=== PATIENT | female | born 1945 | race Caucasian/White ===

== ENCOUNTER 2016-12-22 15:08 | Emergency (ER) | payer MEDICARE ==
[2016-12-22 17:42] LABS: Hematocrit 44 % (35-47); Hemoglobin 14.5 g/dl (12.0-16.0); Mean Corpuscular HGB Conc 33 g/dl (31-36); Mean Corpuscular Hemoglobin 31 pg (27-31); Mean Corpuscular Volume 93 fL (80-97); Mean Platelet Volume 9 um3 (7.4-10.4); Red Blood Count 4.68 10^6/ul (4.0-5.4); Red Cell Distribution Width 14 % (10.5-15)
[2016-12-22 17:49] LABS: Comments Flag Yes
[2016-12-22 17:50] LABS: Add Diff/Slide Review? Slide Review Added
[2016-12-22 17:57] LABS: Albumin 3.9 g/dL (3.2-5.2); BUN/Creatinine Ratio 13.7 (8-20); EGFR African American 101.1 (>60); EGFR Non-African American 78.6 (>60); Globulin 3.1 g/dL (2-4); Potassium 4.2 mmol/L (3.5-5.0); Total Bilirubin 0.7 mg/dL (0.2-1.0)
[2016-12-22 17:59] LABS: Troponin I 0.01 ng/mL (<0.04)
[2016-12-22 18:19] LABS: White Blood Count 2.5 10^3/ul (3.5-10.8)
--- NOTE | 2016-12-22 18:52 | RAD ---
INDICATION: Short of breath COMPARISON: July 14, 2014 TECHNIQUE: PA and lateral dual-energy views were obtained. FINDINGS: Bones/Soft Tissues: There are no acute bony findings. There is a left-sided cardiac pacemaker. Cardiomediastinal: The cardiomediastinal silhouette is normal. Lungs: There are no infiltrates. There is mild chronic interstitial change. Pleura: There are no pleural effusions. Other: There is a large hiatal hernia IMPRESSION: NO ACTIVE DISEASE.
[2016-12-22] MEDS ORDERED: Iohexol 350* (CONTRAST) 500 ML MDV IV ONE (19:38)
[2016-12-22] MEDS ORDERED: Acetaminophen TAB* 325 MG PO ONE (20:08)
--- NOTE | 2016-12-22 21:07 | RAD ---
INDICATION: Chest pain. Short of breath. Evaluate for pulmonary embolus. COMPARISON: Chest x-ray same date TECHNIQUE: Axial source images were obtained from the thoracic inlet to the hemidiaphragms following administration of [address] angiographic technique was utilized. Coronal and sagittal reconstructed images were acquired. CHEST FINDINGS: Neck/thyroid: The visualized neck to include the thyroid appear normal. Chest wall: There are no acute abnormalities of the bony thorax or chest wall. There is left-sided cardiac pacemaker. There is no supraclavicular, infraclavicular, or axillary lymphadenopathy. Lungs : There are no pulmonary parenchymal masses or infiltrates. The pulmonary interstitium appears normal. There are no endobronchial lesions. Cardiomediastinal structures: There is no CT evidence of acute pulmonary embolic disease. The heart is normal in size. There is no pericardial effusion. There is no evidence of aortic aneurysm or dissection. There is no mediastinal or hilar adenopathy. The esophagus appears normal. Pleura : There are no pleural-based masses or effusions. Other: There is a large hiatal hernia. IMPRESSION: NO CT EVIDENCE OF ACUTE PULMONARY EMBOLIC DISEASE.
[2016-12-22 21:18] VITALS: BP 155/80
[2016-12-22] MEDS ORDERED: Furosemide IV* 10 MG/ML VIAL (40 MG) ONE (22:25)
[2016-12-22] MEDS ORDERED: Oseltamivir CAP* 75 MG ONE (22:25)
[2016-12-22] MEDS: Oseltamivir CAP* 75 MG PO SCH ×2 (22:27→22:39)
--- NOTE | 2016-12-22 22:38 | ED ---
Elizabeth Galarza Michael, scribed for William Marcum MD on 12/22/16 at 1841 . Shortness of Breath - HPI Summary HPI Summary: 71 y/o female comes to the ED presenting with SOB that started 5 days ago. The SOB is aggravated with exertion. The pt was given one nebulizer treatment at her PCP today. She also c/o a wheezing, productive cough, nasal drainage, chills , decreased appetite, and frontal lobe TOVAR. The pt denies fever, dysuria, and diarrhea. The PMHx is significant for A-fib and CHF. The FHx is significant for CAD. - History of Current Complaint Chief Complaint: EDShortnessOfBreath Time Seen by Provider: 12/22/16 18:11 Hx Obtained From: Patient, Medical Records Onset/Duration: Gradual Onset, Lasting Days, Still Present Timing: Intermittent Episodes Lasting: Current Severity: Moderate Dyspnea At: Rest Aggrevating Factors: Movement Alleviating Factors: Bronchodilators Associated Signs & Symptoms: Cough (Productive), Wheezing, Chills - nasal drainage. TOVAR. - Allergy/Home Medications Allergies/Adverse Reactions: Allergies Allergy/AdvReac Type Severity Reaction Status Date / Time Morphine Allergy Intermediate Headache Verified 07/06/14 20:41 Aspirin [From Excedrin] Allergy Unknown Unknown Verified 07/06/14 20:41 Reaction Details Celecoxib [From Celebrex] Allergy Unknown Unknown Verified 07/06/14 20:41 Reaction Details Ibuprofen Allergy Unknown Unknown Verified 07/06/14 20:41 Reaction Details Naproxen [From Aleve] Allergy Unknown Unknown Verified 07/06/14 20:41 Reaction Details Oxycodone Allergy Unknown Unknown Verified 07/06/14 20:41 Reaction Details Rofecoxib [From Vioxx] Allergy Unknown Unknown Verified 07/06/14 20:41 Reaction Details Hydromorphone Allergy See Comment Verified 09/06/15 20:07 Pregabalin [From Lyrica] AdvReac Swelling Verified 07/06/14 20:41 PMH/Surg Hx/FS Hx/Imm Hx Endocrine/Hematology History: Reports: Hx Anticoagulant Therapy - xeralto, Hx Blood Transfusions - 1999 needed 4 pints 2x a year possible due to bleed., Hx Anemia Denies: Hx Diabetes, Other Endocrine/Hematological Disorders Cardiovascular History: Reports: Hx Pacemaker/ICD - afib, Other Cardiovascular Problems/Disorders - AFIB Denies: Hx Congestive Heart Failure, Hx Hypertension Respiratory History: Reports: Hx Seasonal Allergies, Other Respiratory Problems/ Disorders - Patient states she gets fluid in her lungs sometimes GI History: Reports: Hx Gall Bladder Disease - cholecystitis Comment Only: Other GI Disorders - Bowel polyp(?) removed History: Denies: Hx Renal Disease Comment Only: Other Problems/Disorders - on ct noted this admission pt has cyst on rt kidney Musculoskeletal History: Reports: Hx Arthritis - knees and back, Hx Back Problems, Hx Bursitis, Other Musculoskeletal History - Rt knee replacement, surgery to l elbow, tendons. Denies: Hx Gout, Hx Orthopedic Injury, Hx Osteoporosis Sensory History: Denies: Hx Cataracts - removed, Hx Contacts or Glasses, Hx Vision Problem, Hx Deafness Opthamlomology History: Denies: Hx Cataracts - removed, Hx Contacts or Glasses, Hx Vision Problem Neurological History: Reports: Hx Seizures Psychiatric History: Denies: Other Psychiatric Issues/Disorders - Surgical History Surgery Procedure, Year, and Place: [place] [facility] [place], 2005, [facility] in [place], [place]. Left elbow tendon/ligament repair, 2003, [place], [place]. . tumor/mass removed from bowel >25 yrs ago. cataracts bilat removed. Hx Anesthesia Reactions: No - Immunization History Date of Tetanus Vaccine: Unsure Date of Influenza Vaccine: 2011 Infectious Disease History: No Infectious Disease History: Denies: Traveled Outside the in Last 30 Days - Social History Alcohol Use: None Substance Use Type: Reports: None Smoking Status (MU): Former Smoker Type: Cigarettes Length of Time of Smoking/Using Tobacco: 20 years Have You Smoked in the Last Year: No Review of Systems Positive: Chills, Fatigue Eyes: Negative Negative: Photophobia Positive: Nasal Discharge, Other - sinus pressure Negative: Palpitations, Chest Pain Positive: Shortness Of Breath, Cough Skin: Negative Neurological: Negative All Other Systems Reviewed And Are Negative: Yes Physical Exam Triage Information Reviewed: Yes Vital Signs On Initial Exam: Initial Vitals Temp Pulse Resp BP Pulse Ox 98.0 F 81 26 151/71 97 12/22/16 15:14 12/22/16 15:14 12/22/16 15:14 12/22/16 15:14 12/22/16 15:14 Appearance: Positive: Obese Skin: Positive: Warm, Skin Color Reflects Adequate Perfusion Head/Face: Positive: Normal Head/Face Inspection Eyes: Positive: Normal, EOMI ENT: Positive: Other - frontal sinus tenderness Neck: Positive: Supple, Nontender. Negative: Nuchal Rigidity Respiratory/Lung Sounds: Positive: Other - decreased breath sound bilateral Cardiovascular: Positive: Normal, RRR. Negative: Murmur Abdomen Description: Positive: Nontender Musculoskeletal: Positive: Normal, Strength/ROM Intact Neurological: Positive: Normal, Sensory/Motor Intact, Alert, Oriented to Person Place, Time, CN Intact II-III - Joanie Coma Scale Coma Scale Total: 15 Diagnostics - Vital Signs Vital Signs Temp Pulse Resp BP Pulse Ox 12/22/16 18:10 97.7 F 79 22 138/66 93 12/22/16 16:21 98.1 F 66 18 138/66 100 12/22/16 15:14 98.0 F 81 26 151/71 97 - Laboratory Lab Results: Lab Results 12/22/16 12/22/16 12/22/16 Range/Units 17:32 17:32 17:32 WBC 2.5 L (3.5-10.8) 10^3/ul RBC 4.68 (4.0-5.4) 10^6/ul Hgb 14.5 (12.0-16.0) g/dl Hct 44 (35-47) % MCV 93 (80-97) fL MCH 31 (27-31) pg MCHC 33 (31-36) g/dl RDW 14 (10.5-15) % Plt Count 90 L (150-450) 10^3/ul MPV 9 (7.4-10.4) um3 Neut % (Auto) 58.5 (38-83) % Lymph % (Auto) 24.6 L (25-47) % [place] % (Auto) 13.4 H (1-9) % Eos % (Auto) 3.1 (0-6) % Baso % (Auto) 0.4 (0-2) % Absolute Neuts (auto) 1.5 (1.5-7.7) 10^3/ul Absolute Lymphs (auto) 0.6 L (1.0-4.8) 10^3/ul Absolute Monos (auto) 0.3 (0-0.8) 10^3/ul Absolute Eos (auto) 0.1 (0-0.6) 10^3/ul Absolute Basos (auto) 0 (0-0.2) 10^3/ul Absolute Nucleated RBC 0 10^3/ul Nucleated RBC % 0.1 Sodium 136 (133-145) mmol/L Potassium 4.2 (3.5-5.0) mmol/L Chloride 101 (101-111) mmol/L Carbon Dioxide 30 (22-32) mmol/L Anion Gap 5 (2-11) mmol/L BUN 10 (6-24) mg/dL Creatinine 0.73 (0.51-0.95) mg/dL Est GFR ( Amer) 101.1 (>60) Est GFR (Non-Af Amer) 78.6 (>60) BUN/Creatinine Ratio 13.7 (8-20) Glucose 80 (70-100) mg/dL Lactic Acid 0.9 (0.5-2.0) mmol/L Calcium 9.0 (8.6-10.3) mg/dL Total Bilirubin 0.70 (0.2-1.0) mg/dL AST 27 (13-39) U/L ALT 17 (7-52) U/L Alkaline Phosphatase 78 (34-104) U/L Troponin I 0.01 (<0.04) ng/mL B-Natriuretic Peptide ( - 100) pg/mL Total Protein 7.0 (6.4-8.9) g/dL Albumin 3.9 (3.2-5.2) g/dL Globulin 3.1 (2-4) g/dL Albumin/Globulin Ratio 1.3 (1-3) 12/22/16 Range/Units 17:32 WBC (3.5-10.8) 10^3/ul RBC (4.0-5.4) 10^6/ul Hgb (12.0-16.0) g/dl Hct (35-47) % MCV (80-97) fL MCH (27-31) pg MCHC (31-36) g/dl RDW (10.5-15) % Plt Count (150-450) 10^3/ul MPV (7.4-10.4) um3 Neut % (Auto) (38-83) % Lymph % (Auto) (25-47) % [place] % (Auto) (1-9) % Eos % (Auto) (0-6) % Baso % (Auto) (0-2) % Absolute Neuts (auto) (1.5-7.7) 10^3/ul Absolute Lymphs (auto) (1.0-4.8) 10^3/ul Absolute Monos (auto) (0-0.8) 10^3/ul Absolute Eos (auto) (0-0.6) 10^3/ul Absolute Basos (auto) (0-0.2) 10^3/ul Absolute Nucleated RBC 10^3/ul Nucleated RBC % Sodium (133-145) mmol/L Potassium (3.5-5.0) mmol/L Chloride (101-111) mmol/L Carbon Dioxide (22-32) mmol/L Anion Gap (2-11) mmol/L BUN (6-24) mg/dL Creatinine (0.51-0.95) mg/dL Est GFR ( Amer) (>60) Est GFR (Non-Af Amer) (>60) BUN/Creatinine Ratio (8-20) Glucose (70-100) mg/dL Lactic Acid (0.5-2.0) mmol/L Calcium (8.6-10.3) mg/dL Total Bilirubin (0.2-1.0) mg/dL AST (13-39) U/L ALT (7-52) U/L Alkaline Phosphatase (34-104) U/L Troponin I (<0.04) ng/mL B-Natriuretic Peptide 207 H ( - 100) pg/mL Total Protein (6.4-8.9) g/dL Albumin (3.2-5.2) g/dL Globulin (2-4) g/dL Albumin/Globulin Ratio (1-3) Result Diagrams: 12/22/16 17:32 12/22/16 17:32 Lab Statement: Any lab studies that have been ordered have been reviewed, and results considered in the medical decision making process. - Radiology CXR Xray Interpretation: No Acute Changes Radiology Interpretation Completed By: Radiologist - CT CTA chest CT Interpretation: No Acute Changes - NO CT EVIDENCE OF ACUTE PULMONARY EMBOLIC DISEASE. CT Interpretation Completed By: Radiologist - EKG EKG 1603 EKG Rhythm: Sinus Rhythm - 61 bpm EKG Interpretation: No STEMI Course/Dx - Course Course Of Treatment: 71 yr old female who has had influenza like illness for a few days, and stopped taking her diuretic to avoid running to the bathroom. I have adivsed her to take her diuretic. I am putting her on tamiflu, and she will follow up with her PMD. - Diagnoses Provider Diagnoses: Influenza, CHF (congestive heart failure), Dyspnea, Hypertension Discharge - Discharge Plan Condition: Good Disposition: HOME Prescriptions: Oseltamivir CAP* [Tamiflu CAP*] 75 mg PO BID #8 cap Patient Education Materials: Influenza (ED), Dyspnea (ED), Hypertension (ED) Referrals: Rebeca Cao MD [Primary Care Provider] - Additional Instructions: be sure to take your diuretic at home. follow up with your doctor to be sure you have your blood pressure under control The documentation as recorded by the Elizabeth amezcua Michael accurately reflects the service I personally performed and the decisions made by me, William Marcum MD.
[2016-12-23] MEDS ORDERED: Furosemide IV* 10 MG/ML VIAL (40 MG) IV SCH (09:00)
== END 2016-12-22 22:41 | disposition home or self-care (01) ==
LOC: ED 15:08
DX: J11.1 Influenza due to unidentified influenza virus with other respiratory manifestations (principal); I50.9 Heart failure, unspecified; R06.00 Dyspnea, unspecified; I10 Essential (primary) hypertension; Z87.891 Personal history of nicotine dependence; Z88.5 Allergy status to narcotic agent; Z88.6 Allergy status to analgesic agent; Z79.01 Long term (current) use of anticoagulants
CPT/HCPCS: 36415; 71020; 71275; 80053; 83605; 83880; 84484; 85025; 87502; 93005; 99283; A9270-GY; J1940; Q9967

== ENCOUNTER 2017-09-12 18:02 | Emergency (ER) | payer MEDICARE ==
[2017-09-12 18:14] VITALS: BP 155/81
--- NOTE | 2017-09-12 19:15 | UC ---
Abdominal Pain Female HPI - HPI Summary HPI Summary: cramping abdomen pain, also is getting burning reflux has been waxing and waning for 2 weeks tonight it got very bad-no nausea vomiting or diarrhea - History of Current Complaint Chief Complaint: UCAbdominalPain Stated Complaint: ABDOMINAL PAIN Time Seen by Provider: 09/12/17 18:20 Hx Obtained From: Patient Hx Last Menstrual Period: s/p hyster ?: No Onset/Duration: Gradual Onset, Lasting Weeks - 2, Resolved Timing: Constant Severity Initially: Severe Severity Currently: None Location: Discrete At: RLQ, Discrete At: LLQ Radiates: No Character: Cramping Aggravating Factor(s): Nothing Alleviating Factor(s): Nothing Associated Signs and Symptoms: Positive: Nausea Allergies/Adverse Reactions: Allergies Allergy/AdvReac Type Severity Reaction Status Date / Time Morphine Allergy Intermediate Headache Verified 09/12/17 18:14 Aspirin [From Excedrin] Allergy Unknown Unknown Verified 09/12/17 18:14 Reaction Details Celecoxib [From Celebrex] Allergy Unknown Unknown Verified 09/12/17 18:14 Reaction Details Ibuprofen Allergy Unknown Unknown Verified 09/12/17 18:14 Reaction Details Naproxen [From Aleve] Allergy Unknown Unknown Verified 09/12/17 18:14 Reaction Details Oxycodone Allergy Unknown Unknown Verified 09/12/17 18:14 Reaction Details Rofecoxib [From Vioxx] Allergy Unknown Unknown Verified 09/12/17 18:14 Reaction Details Hydromorphone Allergy See Comment Verified 09/12/17 18:14 Pregabalin [From Lyrica] AdvReac Swelling Verified 09/12/17 18:14 Home Medications: Home Medications Amiodarone HCl [Amiodarone HCl-] 100 mg PO DAILY 09/12/17 [History Confirmed 06/20] Ferrous Sulfate TAB* 325 mg PO DAILY 09/12/17 [History Confirmed 09/12/17] PMH/Surg Hx/FS Hx/Imm Hx Previously Healthy: No Cardiovascular History: Atrial Fibrillation Other History Of: Anticoagulant Therapy - xeralto - Surgical History Surgical History: Yes Surgery Procedure, Year, and Place: Hysterectomy, 1977, [facility]. Right knee replacement, 2005, [facility] in [place], [place]. Left elbow tendon/ligament repair, 2003, [place], [place]. Cholecystecomty 2015. tumor/mass removed from bowel >25 yrs ago. cataracts bilat removed. - Family History Known Family History: Positive: None - Social History Occupation: Retired Lives: Alone Alcohol Use: None Substance Use Type: None Smoking Status (MU): Former Smoker Type: Cigarettes Length of Time of Smoking/Using Tobacco: 20 years Have You Smoked in the Last Year: No When Did the Patient Quit Smoking/Using Tobacco: 1994 Household Exposure Type: Cigarettes - Immunization History Most Recent Influenza Vaccination: 2016 Most Recent Tetanus Shot: 2008 Most Recent Pneumonia Vaccination: 2012 Review of Systems Constitutional: Negative Skin: Negative Eyes: Negative ENT: Negative Respiratory: Negative Cardiovascular: Negative Gastrointestinal: Negative Genitourinary: Negative Motor: Negative Neurovascular: Negative Musculoskeletal: Negative Neurological: Negative Psychological: Negative Is Patient Immunocompromised?: No All Other Systems Reviewed And Are Negative: Yes Physical Exam Triage Information Reviewed: Yes Appearance: Well-Appearing, No Pain Distress, Well-Nourished Vital Signs: Initial Vital Signs Temp 96.5 F 09/12/17 18:08 Pulse 69 09/12/17 18:08 Resp 18 09/12/17 18:08 BP 155/81 09/12/17 18:08 Pulse Ox 97 09/12/17 18:08 Vital Signs Reviewed: Yes Eye Exam: Normal Eyes: Positive: Conjunctiva Clear ENT Exam: Normal ENT: Positive: Normal ENT inspection, Hearing grossly normal, Pharynx normal. Negative: Nasal congestion, Nasal drainage Dental Exam: Normal Neck exam: Normal Neck: Positive: Supple, Nontender Respiratory Exam: Normal Respiratory: Positive: Chest non-tender, Lungs clear, Normal breath sounds, No respiratory distress, No accessory muscle use Cardiovascular Exam: Normal Cardiovascular: Positive: RRR, No Murmur, Pulses Normal, Brisk Capillary Refill Diagnostics - Laboratory Diagnostic Studies Completed/Ordered: [id number] Abd Pain Female Course/Dx - Course Course Of Treatment: Patient refuses to go to ed for further evaluation, extensive education regarding abdomen pain and reflux burning being a sign of a potenial cardiac issue that may cause --patient understands and still refuses hospital care this evening - Differential Dx/Diagnosis Provider Diagnoses: Acute abdomen pain and chest burning Discharge - Discharge Plan Condition: Stable Disposition: HOME Patient Education Materials: Chest Pain (ED), Acute Abdominal Pain (ED) Referrals: Rebeca Cao MD [Primary Care Provider] - As Soon As Possible Additional Instructions: I strongly encourage you to go to the emergency department for complete evaluation of your pain.
[2017-09-12] MEDS ORDERED: Mupirocin 2% OINT* TUBE TOPICAL ONE (19:36)
== END 2017-09-12 19:36 | disposition home or self-care (01) ==
LOC: UCEAST 18:02
DX: R10.31 Right lower quadrant pain (principal); R10.32 Left lower quadrant pain; R11.0 Nausea; K21.9 Gastro-esophageal reflux disease without esophagitis; I48.91 Unspecified atrial fibrillation; Z79.01 Long term (current) use of anticoagulants; Z96.651 Presence of right artificial knee joint; Z90.710 Acquired absence of both cervix and uterus; Z90.49 Acquired absence of other specified parts of digestive tract; Z88.6 Allergy status to analgesic agent; Z88.5 Allergy status to narcotic agent; Z88.8 Allergy status to other drugs, medicaments and biological substances; Z87.891 Personal history of nicotine dependence
CPT/HCPCS: 81003; 93005; 99212; G0463

== ENCOUNTER 2018-09-07 13:37 | Emergency (ER) | payer MEDICARE ==
[2018-09-07 14:51] VITALS: BP 138/85
--- NOTE | 2018-09-07 15:32 | UC ---
Respiratory Complaint HPI - HPI Summary HPI Summary: Patient is a 73-year-old female with about a 5 day history of worsening dyspnea on exertion, shortness of breath, and wheezing. States that she has been coughing up purulent sputum today. She denies any chest pain. She denies any fever. On 09/05/18 she had a chest x-ray that showed no evidence of CHF or pneumonia. On 09/05/18 she had formal pulmonary function tests that showed severe obstructive component. - History of Current Complaint Chief Complaint: UCGeneralIllness Stated Complaint: SINUS PAIN, CONGESTION Time Seen by Provider: 09/07/18 15:26 Hx Obtained From: Patient Hx Last Menstrual Period: s/p hyster Onset/Duration: Gradual Onset, Lasting Days Timing: Constant Severity Initially: Mild Severity Currently: Mild Pain Intensity: 2 Pain Scale Used: 0-10 Numeric Character: Cough: Productive Aggravating Factors: Exertion Alleviating Factors: Nothing Associated Signs And Symptoms: Positive: Wheezing, Nasal Congestion, Sinus Discomfort - Allergies/Home Medications Allergies/Adverse Reactions: Allergies Allergy/AdvReac Type Severity Reaction Status Date / Time aspirin Allergy Unknown Verified 09/07/18 15:01 Reaction Details celecoxib [From Celebrex] Allergy Unknown Verified 09/07/18 15:01 Reaction Details hydromorphone Allergy Unknown Verified 09/07/18 15:01 Reaction Details ibuprofen Allergy Unknown Verified 09/07/18 15:01 Reaction Details morphine Allergy Headache Verified 09/07/18 15:01 naproxen Allergy Unknown Verified 09/07/18 15:01 Reaction Details oxycodone Allergy Unknown Verified 09/07/18 15:01 Reaction Details pregabalin [From Lyrica] Allergy Swelling Verified 09/07/18 15:01 rofecoxib [From Vioxx] Allergy Unknown Verified 09/07/18 15:01 Reaction Details Home Medications: Home Medications Acetaminophen [Tylenol] 09/07/18 [History] PMH/Surg Hx/FS Hx/Imm Hx Cardiovascular History: Cardiac Disease, Hypertension, Pacemaker/ICD Respiratory History: Pneumonia Other History Of: Anticoagulant Therapy - xeralto - Surgical History Surgical History: Yes Surgery Procedure, Year, and Place: [place], [place] [facility] [place]. [place], 2005, [facility] in [place], [place]. Left elbow tendon/ligament repair, 2003, [place], [place]. Cholecystectomy 2015. tumor/mass removed from bowel >25 yrs ago. cataracts bilat removed. PACEMAKER - Family History Known Family History: Positive: Hypertension - Social History Alcohol Use: None Substance Use Type: None Smoking Status (MU): Former Smoker Type: Cigarettes Length of Time of Smoking/Using Tobacco: 20 years Have You Smoked in the Last Year: No When Did the Patient Quit Smoking/Using Tobacco: 1994 Household Exposure Type: Cigarettes - Immunization History Most Recent Influenza Vaccination: 2016 Most Recent Tetanus Shot: 2008 Most Recent Pneumonia Vaccination: 2012 Review of Systems All Other Systems Reviewed And Are Negative: Yes Constitutional: Positive: Fatigue Skin: Positive: Negative Eyes: Positive: Negative ENT: Positive: Nasal Discharge, Sinus Congestion Respiratory: Positive: Shortness Of Breath, Cough Cardiovascular: Positive: Negative Gastrointestinal: Positive: Negative Genitourinary: Positive: Negative Motor: Positive: Negative Neurovascular: Positive: Negative Musculoskeletal: Positive: Negative Neurological: Positive: Negative Psychological: Positive: Negative Physical Exam Triage Information Reviewed: Yes Appearance: Well-Appearing, No Pain Distress, Well-Nourished, Obese Vital Signs: Initial Vital Signs Temp 97.8 F 09/07/18 14:47 Pulse 77 09/07/18 14:47 Resp 20 09/07/18 14:47 BP 138/85 09/07/18 14:47 Pulse Ox 93 09/07/18 14:47 Vital Signs Reviewed: Yes Eyes: Positive: Conjunctiva Clear ENT: Positive: Sinus tenderness. Negative: Pharynx normal, Nasal congestion, Nasal drainage, Trismus Dental: Negative: Dental Fracture @ Neck: Positive: Nontender, No Lymphadenopathy Respiratory: Positive: No respiratory distress, No accessory muscle use, Wheezing Cardiovascular: Positive: RRR, No Murmur Musculoskeletal: Positive: ROM Intact, Edema @ - tr pretibial edema Neurological: Positive: Alert Psychological Exam: Normal Skin Exam: Normal Diagnostic Evaluation - Laboratory O2 Sat by Pulse Oximetry: 93 - low normal Re-Evaluation - Re-Evaluation First Eval Re-Evaluation Time: 16:16 Change: Improved - lungs clear/wheezing gone Respiratory Course/Dx - Differential Dx/Diagnosis Provider Diagnosis: Bronchospasm with bronchitis, acute, Sinusitis Discharge - Sign-Out/Discharge Documenting (check all that apply): Patient Departure All imaging exams completed and their final reports reviewed: No Studies - Discharge Plan Condition: Stable Disposition: HOME Patient Education Materials: Acute Bronchitis (ED), Sinusitis (ED), How to Use a Metered-Dose Inhaler and a Spacer (ED) Referrals: Rebeca Cao MD [Primary Care Provider] - 3 Days (if not better) Additional Instructions: recheck for new or worsening symptoms - Billing Disposition and Condition Condition: STABLE Disposition: Home
[2018-09-07] MEDS ORDERED: Ipratropium 0.5MG/2.5ML NEB* 0.5 MG/2.5 ML NEB.SOLN INH ONE (15:35)
[2018-09-07] MEDS ORDERED: Albuterol 2.5 MG/3 ML NEB.SOL* (0.083%) INH ONE (15:35)
[2018-09-07] MEDS ORDERED: predniSONE TAB* 20 MG PO ONE (16:14)
[2018-09-07] MEDS ORDERED: Albuterol HFA INHALER* 8 gm MDI INH ONE (16:14)
== END 2018-09-07 16:15 | disposition home or self-care (01) ==
LOC: UCEAST 13:37
DX: J32.9 Chronic sinusitis, unspecified (principal); J20.9 Acute bronchitis, unspecified; Z88.6 Allergy status to analgesic agent; Z88.5 Allergy status to narcotic agent; I10 Essential (primary) hypertension; Z95.811 Presence of heart assist device; F17.210 Nicotine dependence, cigarettes, uncomplicated
CPT/HCPCS: 99202; A9270-GY; G0463; J7512

== ENCOUNTER 2019-10-14 07:30 | Inpatient (IN) | payer MEDICARE ==
[~2019-10-14 07:30] MED LIST: Buffered Lidocaine 1% SYRIN* 1 ML/SYRINGE INTRADERM ONE; Famotidine IV* 10 MG/ML 2 ML (20 mg) IV ONE; Lactated Ringers 1000 ML Bag* 1,000 ML IV SCH
--- OUTSIDE RECORDS SUMMARY | 2019-10-14 08:41 | XMS REPORT | Continuity of Care Document ---
:1945 External Reference #:[id number] Author Name Jaret Bentley M.D. (transmitted by agent of provider Caryl Bucio) Address [address] [place] [address] Care Team Providers Name Role Phone Rebeca Cao MD - Care Team Information Chart Picker Family Medicine Problems Active Problems Provider Date Atrial fibrillation Jaret Bentley M.D. Onset: 07/04/2013 Dyspnea Jaret Bentley M.D. Onset: 07/04/2013 Electrocardiogram abnormal Jaret Bentley M.D. Onset: 07/24/2013 Congestive heart failure Jaret Bentley M.D. Onset: 07/24/2013 Diastolic heart failure Jaret Bentley M.D. Onset: 11/05/2013 Localized, primary osteoarthritis Masood Morse M.D. Onset: 08/26/2019 Social History Type Date Description Comments Sex Unknown Cigarette Use quit 1994 ETOH Use Denies alcohol use Tobacco Use Start: Unknown End: Patient is a former quit in 1994 Unknown smoker Recreational Drug Use Denies Drug Use Smoking Status Reviewed: 09/17/19 Patient is a former quit in 1994 smoker Exercise Type/Frequency Does not exercise Allergies, Adverse Reactions, Alerts Active Allergies Reaction Severity Comments Date Pregabalin swelling 07/04/2013 Rofecoxib 07/04/2013 Celecoxib 07/04/2013 Oxycodone 07/04/2013 Naproxen 07/04/2013 Morphine 07/04/2013 Ibuprofen 07/04/2013 Aspirin 07/04/2013 Fentanyl palpitations,nausea, H/A per patient 04/03/2014 Triple Antibiotic Ointment Urticaria Moderate 09/14/2017 Dairy abdominal pain 02/20/2018 Gluten inflammation 02/20/2018 Cephalexin 08/26/2019 Medications Active Medications SIG Qnty Indications Ordering Provider Date Metoprolol Succinate 1 by mouth 180tabs Jaret Bentley, 07/07/2015 ER twice a day M.D. 25mg Tablets ER 24HR Amiodarone HCL 1/2 tab by 45tabs Jaret Betnley, 07/22/2014 200mg mouth every day M.D. Tablets Eliquis 1 by mouth 180tabs Jaret Bentley, 5mg Tablets twice a day M.D. Anoro Ellipta once daily Javier Abel MD 62.5-25mcg/Inh Aerosol Acetaminophen 2 every 6 hours Unknown 500mg as needed Tablets Medications Administered in Office Medication SIG Qnty Indications Ordering Provider Date Technetium TC 99M Ica Nuclear Schedule 09/24/2017 Tetrofosmin, Per Unit Dose Up To 40 Millicuries Injection Inj, Regadenoson, 0.1 MG Pedro Luis Melvin Reyes M.D., 09/19/2017 Injection FACC, FASNC Technetium TC 99M Pedro Luis Melvin Reyes M.D., 09/19/2017 Tetrofosmin, Per Unit Dose FACC, FASNC Up To 40 Millicuries Injection Depomedrol 40MG Masood Morse M.D. 08/06/2017 Injection Immunizations Description No Information Available Vital Signs Date Vital Result Comment 09/17/2019 8:33am Height 63.5 inches 5'3.50" Weight 258.50 lb without shoes Heart Rate 66 /min BP Systolic Sitting 130 mmHg LA BP Diastolic Sitting 86 mmHg LA BP Systolic Standing 132 mmHg LA BP Diastolic Standing 84 mmHg LA BMI (Body Mass Index) 45.1 kg/m2 Ejection Fraction 60-65% Echo 03/23/17 08/26/2019 9:35am Height 63.5 inches 5'3.50" Weight 263.25 lb Heart Rate 60 /min BP Systolic 132 mmHg BP Diastolic 82 mmHg Respiratory Rate 16 /min Body Temperature 97.8 F Pain Level 7 BMI (Body Mass Index) 45.9 kg/m2 Results Description No Information Available Procedures Date Code Description Status 09/17/2019 53497 EKG Tracing & Interpretation Completed 08/20/2019 97300 Pace Maker Eval W/Iterative Adjment Dual Lead Completed Medical Devices Description No Information Available Encounters Type Date Location Provider Dx Diagnosis Office Visit 08/26/2019 [facility] Masood Morse M.D. M17.12 Unilateral primary 9:45a at [place] osteoarthritis, left knee Assessments Date Code Description Provider 09/17/2019 I49.5 Sick sinus syndrome Jaret Bentley M.D. 09/17/2019 Z95.0 Presence of cardiac pacemaker Jaret Bentley M.D. 09/17/2019 I48.0 Paroxysmal atrial fibrillation Jaret Bentley M.D. 09/17/2019 Z01.810 Preoperative cardiovascular examination Jaret Bentley M.D. 08/26/2019 M17.12 Unilateral primary osteoarthritis, left Masood Morse M.D. knee 08/20/2019 I49.5 Sick sinus syndrome Ica Pacer Schedule 08/20/2019 Z95.0 Presence of cardiac pacemaker Jaret Bentley M.D. 08/20/2019 Z95.0 Presence of cardiac pacemaker Ica Pacer Schedule Plan of Treatment Future Appointment(s):10/01/2019 9:15 am - Masood Morse M.D. at [facility] at Lrhoee7410/14/2019 11:00 am - Masood Morse M.D. at [facility] at [place]1909/17/2019 - Jaret Bentley M.D.I49.5 Sick sinus smwenzzeW84.0 Presence of cardiac updpkbuwrN23.0 Paroxysmal atrial nmdcicomuuwfW40.810 Preoperative cardiovascular examinationFollow up:1 yearRecommendations:Stop Xarelto 3 days before surgery then restart after Functional Status Description No Information Available Mental Status Description No Information Available Referrals Description No Information Available
--- OUTSIDE RECORDS SUMMARY | 2019-10-14 08:41 | XMS REPORT | Continuity of Care Document ---
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 Tablets [...] Injection Inj, Regadenoson, 0.1 MG Pedro Luis Reyes M.D., 09/19/2017 Injection FACC, FASNC Technetium TC 99M Pdero Luis Melvin Reyes M.D., 09/19/2017 Tetrofosmin, Per Unit Dose FACC, FASNC Up To 40 Millicuries Injection Depomedrol 40MG Masood Morse M.D. 08/06/2017 Injection Immunizations Description No Information Available Vital Signs Date Vital Result Comment 10/01/2019 9:20am Height 63.5 inches 5'3.50" Weight 258.00 lb Heart Rate 96 /min BP Systolic 130 mmHg BP Diastolic 82 mmHg Respiratory Rate 16 /min Pain Level 5 BMI (Body Mass Index) 45.0 kg/m2 09/17/2019 8:33am Height 63.5 inches 5'3.50" Weight 258.50 lb without shoes Heart Rate 66 /min BP Systolic Sitting 130 mmHg LA BP Diastolic Sitting 86 mmHg LA BP Systolic Standing 132 mmHg LA BP Diastolic Standing 84 mmHg LA BMI (Body Mass Index) 45.1 kg/m2 Ejection Fraction 60-65% Echo 03/23/17 Results Test Acquired Date Facility Test Result H/L Range Note Urinalysis Profile 10/01/2019 [facility] Urine Color Yellow [address] [place] [address] [phone] Urine Appearance Cloudy Urine Specific [place] 1.020 Normal 1.010-1.030 Urine pH 6.0 Normal 5-9 Urine Urobilinogen Positive Abnormal Negative Urine Ketones Negative Negative Urine Protein Negative Negative Urine Leukocytes 3+ Abnormal Negative Urine Blood Negative Negative * * Abnormal Negative 1 Urine Nitrite Negative Negative Urine Bilirubin Negative Negative Urine Glucose Negative Negative Urine White Blood Cell 1+(6-10/hpf) Abnormal Absent Urine Red Blood Cell 1+(3-5/hpf) Abnormal Absent Urine Bacteria Absent Absent Urine Squamous Epithelial Cell Present Abnormal Absent CBC Auto 10/01/2019 [facility] White Blood 5.2 10^3/uL Normal 3.5-10.[address] [place] [address] [phone] Red Blood Count 4.62 10^6/uL Normal 3.70-4.87 Hemoglobin 14.7 g/dL Normal 12.0-16.0 Hematocrit 44 % Normal 35-47 Mean Corpuscular Volume 95 fL Normal 80-97 Mean Corpuscular Hemoglobin 32 pg High 27-31 Mean Corpuscular HGB Conc 34 g/dL Normal 31-36 Red Cell Distribution Width 15 % Normal 10-15 Platelet Count 134 10^3/uL Low 150-450 Mean Platelet Volume 10.1 fL Normal 7.4-10.4 Abs Neutrophils 3.2 10^3/uL Normal 1.5-7.7 Abs Lymphocytes 1.4 10^3/uL Normal 1.0-4.8 Abs Monocytes 0.6 10^3/uL Normal 0-0.8 Abs Eosinophils 0.1 10^3/uL Normal 0-0.6 Abs Basophils 0.0 10^3/uL Normal 0-0.2 Abs Nucleated RBC 0.0 10^3/uL Granulocyte % 60.4 % Lymphocyte % 26.0 % Monocyte % 10.6 % Eosinophil % 2.5 % Basophil % 0.5 % Nucleated Red Blood Cells % 0.1 Type & Screen 10/01/2019 [facility] Patient Blood Type O Positive [address] [place] [address] [phone] Antibody Screen NEGATIVE Inr/Protime 10/01/2019 [facility] Inr 1.41 High 0.82-1.[address] [place] [address] [phone] Laboratory test 10/01/2019 [facility] Partial 37.1 Normal 26.0 -38.[address] [address] Time PTT [phone] Comp Metabolic 10/01/2019 [facility] Sodium 140 mmol/L Normal 135-[address] [place] [address] [phone] Chloride 104 mmol/L Normal 101-111 Co2 Carbon Dioxide 31 mmol/L Normal 22-32 Glucose 71 mg/dL Normal 70-100 Blood Urea Nitrogen 18 mg/dL Normal 6-24 Creatinine 0.91 mg/dL Normal 0.51-0.95 BUN/Creatinine Ratio 19.8 Normal 8-20 Calcium 9.7 mg/dL Normal 8.6-10.3 Total Protein 7.0 g/dL Normal 6.4-8.9 Albumin 4.3 g/dL Normal 3.2-5.2 Globulin 2.7 g/dL Normal 2-4 Albumin/Globulin Ratio 1.6 Normal 1-3 Total Bilirubin 0.90 mg/dL Normal 0.2-1.0 Alkaline Phosphatase 70 U/L Normal 34-104 Alt 15 U/L Normal 7-52 Egfr Non- 60.4 >60 Egfr 73.1 >60 3 Potassium TNP mmol/L 3.5-5.0 4 Anion Gap 5 mmol/L Normal 2-11 Ast TNP U/L 13-39 5 Urine Culture And 10/01/2019 [facility] Urine Culture SEE RESULT [address] [place] [address] [phone] 1 *Ascorbic acid is present which may interfere with detection of blood. 2 Standard intensity warfarin therapeutic range: 2.0-3.0 High intensity warfarin therapeutic range: 2.5-3.5 3 Because ethnic data is not always readily available, this report includes an eGFR for both -Americans and non- Americans. The National Kidney Disease Education Program (NKDEP) does not endorse the use of the MDRD equation for patients that are not between the ages of 18 and 70, are , have extremes of body size, muscle mass, or nutritional status, or are non- or non-. According to the National Kidney Foundation, irrespective of diagnosis, the stage of the disease is based on the level of kidney function: Stage Description GFR(mL/min/1.73 m(2)) 1 Kidney damage with normal or decreased GFR 90 2 Kidney damage with mild decrease in GFR 60-89 3 Moderate decrease in GFR 30-59 4 Severe decrease in GFR 15-29 5 Kidney failure <15 (or dialysis) 4 Specimen Hemolyzed. Result may not be valid. Unable to report test result due to hemolysis. 5 Unable to report test result due to hemolysis. 6 SEE RESULT BELOW Name: JEREMY BOSS Jose A : [address]: Masood Morse MD Acct: [id number] Unit: [id number] AGE: 74 Location: [facility] Re10/01/19 SEX: F Status: REG REF SPEC: [id number] DOMINIQUE: 10/01/19-1342 [facility] DR: Masood Morse MD REQ: [id number] RECD: 10/01/19 STATUS: ELEN RASHID DR: Rebeca Cao MD _ SOURCE: URINE SPDESC: ORDERED: Urine Culture QUERIES: Urine Source: Clean Catch Procedure Result Reported Site Urine Culture Final 10/03/19- 0951 ML Organism 1 ESCHERICHIA COLI Edwards Count >100,000 (Many) CFU/ML Organism 2 NORMAL SIM Edwards Count 1-10,000 (Few) CFU/ML 1. ESCHERICHIA COLI M.I.C. RX --------- ------ Ampicillin >=32 R Cefazolin <=4 S Cefepime <=1 S Ceftriaxone <=1 S Ciprofloxacin <=0.25 S Gentamicin <=1 S Levofloxacin <=0.12 S Meropenem <=0.25 S Nitrofurantoin <=16 S Tetracycline >=16 R Pipercillin/Tazobactam <=4 S Trimethoprim/Sulfamethoxazole <=20 S Amoxicillin/Clavulanic Acid 8 S Aztreonam <=1 S Contact the Microbiology Department for any additional antibiotic reporting. * ML - Main Lab . END OF REPORT DEPARTMENT OF PATHOLOGY, [address] [place] [address] Semaj Mendes M.D. Director [facility] # [id number] Procedures Date Code Description Status 09/17/2019 96462 EKG Tracing & Interpretation Completed 08/20/2019 66009 Pace Maker Eval W/Iterative Adjment Dual Lead Completed Medical Devices Description No Information Available Encounters Type Date Location Provider Dx Diagnosis Office Visit 09/17/2019 [facility] Jaret Bentley, I49.5 Sick sinus 8:45a Of Mds Coordinator M.DRomero syndrome Z95.0 Presence of cardiac pacemaker I48.0 Paroxysmal atrial fibrillation Z01.810 Encounter for preprocedural cardiovascular examination M17.12 Unilateral primary osteoarthritis, left knee 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 osteoarthritis, left [place] knee Assessments Date Code Description Provider 10/01/2019 M17.12 Unilateral primary osteoarthritis, left Masood Morse M.D. knee 09/17/2019 I49.5 Sick sinus syndrome Jaret Bnetley M.D. 09/17/2019 Z95.0 Presence of cardiac pacemaker Jaret Bentley M.D. 09/17/2019 I48.0 Paroxysmal atrial fibrillation Jaret Bentley M.D. 09/17/2019 Z01.810 Preoperative cardiovascular examination Jaret Bentley M.D. 09/17/2019 M17.12 Unilateral primary osteoarthritis, left Jaret Bentley M.D. 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 08/26/2019 M17.12 Unilateral primary osteoarthritis, left Masood Morse M.D. knee 08/20/2019 I49.5 Sick sinus syndrome Ica Pacer Schedule 08/20/2019 Z95.0 Presence of cardiac pacemaker Jaret Bentley M.D. 08/20/2019 Z95.0 Presence of cardiac pacemaker Ica Pacer Schedule Plan of Treatment Future Appointment(s):10/27/2019 10:45 am - Masood Morse M.D. at [facility] at Hot[place]m0810/14/2019 11:00 am - Masood Morse M.D. at [facility] at M[place]6010/01/2019 - Masood Morse M.D.M17.12 Unilateral primary osteoarthritis, left kneeFollow up:Follow up: to the OR Functional Status Description No Information Available Mental Status Description No Information Available Referrals Description No Information Available
--- OUTSIDE RECORDS SUMMARY | 2019-10-14 08:41 | XMS REPORT | Continuity of Care Document ---
:1945 External Reference #:[id number] Author Name Masood Morse M.D. (transmitted by agent of provider Tayla Saravia) Address [address] [place] [address] [place] [address] Care Team Providers Name Role Phone Rebeca Cao MD - Care Team Information Executive Assistant [phone] Family Medicine Problems Active Problems Provider Date [...] kg/m2 Ejection Fraction 60-65% Echo 03/23/17 Results Description No Information Available Procedures Date Code Description Status 09/17/2019 83458 EKG Tracing & Interpretation Completed 08/20/2019 01762 Pace Maker Eval W/Iterative Adjment Dual Lead Completed Medical Devices Description No Information Available Encounters Type Date Location Provider Dx Diagnosis Office Visit 09/17/2019 [facility] Jaret Bentley I49.5 Sick sinus 8:45a Of [place] Man M.DRomero syndrome Z95.0 Presence of cardiac pacemaker I48.0 Paroxysmal atrial fibrillation Z01.810 Encounter for preprocedural cardiovascular examination M17.12 Unilateral primary osteoarthritis, left knee Z79.01 correction (current) use of anticoagulants Office Visit 08/26/2019 [place] Joana Juarez.12 Unilateral primary 9:45a Orthopedics at .D. osteoarthritis, left [place] knee Assessments Date Code Description Provider 10/01/2019 M17.12 Unilateral primary osteoarthritis, left Masood Morse M.D. knee 09/17/2019 I49.5 Sick sinus syndrome Jaret Bentley M.D. 09/17/2019 Z95.0 Presence of cardiac pacemaker Jaret Bentley M.D. 09/17/2019 I48.0 Paroxysmal atrial fibrillation Jaret Bentley M.D. 09/17/2019 Z01.810 Preoperative cardiovascular examination Jaret Bentley M.D. 09/17/2019 M17.12 Unilateral primary osteoarthritis, left Jaret Bentley M.D. knee 09/17/2019 Z79.01 correction (current) use of anticoagulants Jaret Bentley M.D. 08/26/2019 M17.12 Unilateral primary osteoarthritis, left Masood Morse M.D. knee 08/20/2019 I49.5 Sick sinus syndrome Ica Pacer Schedule 08/20/2019 Z95.0 Presence of cardiac pacemaker Jaret Bentley M.D. 08/20/2019 Z95.0 Presence of cardiac pacemaker Ica Pacer Schedule Plan of Treatment Future Appointment(s):10/27/2019 10:45 am - Masood Morse M.D. at [facility] at Owhzfv3310/14/2019 11:00 am - Masood Morse M.D. at [facility] at Knybkz6010/01/2019 - Masood Morse M.D.M17.12 Unilateral primary osteoarthritis, left kneeFollow up:Follow up: to the OR Functional Status Description No Information Available Mental Status Description No Information Available Referrals Description No Information Available
--- OUTSIDE RECORDS SUMMARY | 2019-10-14 08:42 | XMS REPORT | Summary of Care ---
:1945 Author Organization [facility] Address [address] [address] Care Team Providers Name Role Phone Rebeca Cao MD Primary Care Provider Jaret Bentley MD Unavailable Reason for Visit Reason Comments Sore Throat X1 day patient would not describe her ymptoms as sore throat she state that her voice is gone and that she has no cough howvever she is bringing up mucus described as "Avocado looking" Rash stomach and the side of the abdomen on the left side "itches" X1 week Encounter Details Date Type Department Care Team Description 08/22/2019 Office Visit [place] Yelitza Olivera, Viral laryngitis ( Primary Dx); 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 Allergic reaction to drug, subsequent encounter [address] [facility] [place] [address] [place] [address] [phone] Allergies Active Allergy Reactions Severity Noted Date Comments Ipratropium Rash 12/22/2016 Nose red and swollen Celecoxib [employer] Reaction 09/26/2007 Loopy, nauseated Gluten Other 07/06/2010 Flare of arthritis Lactose GI Reaction 12/04/2018 Lactose intolerant Lidoderm Rash 07/06/2010 But can take lidocaine, likely adhesive rash Morphine GI Reaction 01/12/2011 Oxycodone-Acetaminophen GI Reaction 01/12/2011 documented as of this encounter (statuses as of 08/22/2019) Medications Medication Sig Dispensed Refills Start Date End Date Status metoprolol (TOPROL Take 25 mg by 0 Active XL) 25 MG Oral mouth TWICE TABLET SR 24 HR DAILY. amiodarone Take 100 mg by 0 Active (PACERONE, mouth DAILY. CORDARONE) 200 MG Oral Tab Ferrous Sulfate Take 90 mg by 0 Active Dried 45 MG Oral mouth DAILY. Tab CR furosemide (LASIX) Take 1 Tab by 90 Tab 1 01/15/2017 Active 20 MG Oral mouth DAILY. TabIndications: Essential hypertension potassium chloride Take 1 Tab by 30 Tab 5 02/13/2017 Active (K-DUR) 10 MEQ mouth DAILY Oral Tab NEEDED CRIndications: (furosemide Edema, unspecified use). type apixaban (ELIQUIS) Take 1 Tab by 180 Tab 1 07/23/2017 Active 5 MG Oral mouth TWICE TabIndications: DAILY. Atrial fibrillation, unspecified type ([facility]) albuterol HFA Take 2 Puffs by 2 Inhaler 5 10/09/2018 Active (VENTOLIN) 108 (90 inhalation Base) MCG/ACT EVERY SIX HOURS Inhalation Aero NEEDED SolnIndications: (wheezing). RAD (reactive airway disease), mild intermittent, uncomplicated diclofenac 4 g by Topical 100 g 3 02/18/2019 Active (VOLTAREN) 1 % route FOUR Transdermal TIMES DAILY GelIndications: NEEDED (knee Arthritis pain.). acetaminophen Take 250 mg by 0 Active (TYLENOL) 500 MG mouth DAILY. Oral Tab pregabalin Take 1 Cap by 90 Cap 1 08/14/2019 Active (LYRICA) 50 MG mouth THREE Oral TIMES DAILY CapIndications: NEEDED (back Lumbar back pain pain). Max with radiculopathy Daily Amount: affecting left 150 mg. lower extremity ANORO ELLIPTA Take 1 INHL by 60 Each 6 08/16/2019 02/15/20 Active 62.5-25 MCG/INH inhalation 20 Inhalation AEROSOL DAILY for 183 POWDER, BREATH days. ACTIVATEDIndicatio ns: Chronic obstructive pulmonary disease, unspecified COPD type ([facility]) Clindamycin HCl Take 1 Cap by 21 Cap 0 08/16/2019 08/23/20 Active 300 MG Oral mouth THREE 19 CapIndications: TIMES DAILY for Cellulitis of 7 days. lower extremity, unspecified laterality clotrimazole-betam Apply to rash 45 g 0 08/22/2019 Active ethasone twice a day for (LOTRISONE) 1-0.05 7-10 days % Apply externally CreamIndications: Allergic reaction to drug, subsequent encounter clotrimazole-betam Apply to rash 45 g 0 08/14/2019 08/22/20 Discontinued ethasone twice a day for 19 (Reorder) (LOTRISONE) 1-0.05 7-10 days % Apply externally CreamIndications: Psoriasis documented as of this encounter (statuses as of 08/22/2019) Active Problems Problem Noted Date Chronic obstructive pulmonary disease 01/20/2019 Paroxysmal atrial fibrillation 04/14/2016 Vasomotor rhinitis 11/09/2015 Hypertension, benign 07/12/2015 Pacemaker 12/30/2014 Overview: Pacer Jul 2014. Arthritis 09/26/2007 Overview: Dhcr-rv-kytz arthritis, right knee. Narrowing left knee Psoriasis documented as of this encounter (statuses as of 08/22/2019) Immunizations Name Administration Dates Next Due Influenza (IM) Preservative Free 06/07/2018, 06/05/2013, 05/17/2011, 07/06/2010 Influenza Vaccine High Dose 06/20/2017, 05/16/2016, 06/19/2014 Influenza Virus Vaccine Pres Free 6-35 06/10/2012 Months PNEUMOCOCCAL POLYSACCHARIDE VACCINE 09/03/2013 Pneumococcal Conjugate(13 Valent) 05/16/2016 documented as of this encounter Social History Tobacco Use Types Packs/Day Years Used Date Former Smoker Cigarettes 1 20 Quit: 04/03/1995 Smokeless Tobacco: Never Used Comments: quit ~1994 Alcohol Use Drinks/Week oz/Week Comments Yes 0 Standard drinks or equivalent 0.0 infreq Social Isolation Answer Date Recorded In a typical week, how many times do you More than three times a week 2018 talk on the phone with family, friends, or neighbors? How often do you get together with friends More than three times a week 12/04 or relatives? How often do you attend denominational or Not asked quaker services? Do you belong to any clubs or Not asked organizations such as denominational groups, unions, fraternal or athletic groups, or school groups? How often do you attend meetings of the Not asked clubs or organizations you belong to? Are you now , , , Not asked , never or living with a partner? Physical Activity Answer Date Recorded On average, how many days per week do you engage in moderate to 0 days 2018 strenuous exercise (like walking fast, running, jogging, dancing, swimming, biking, or other activities that cause a light or heavy sweat)? On average, how many minutes do you engage in exercise at this 0 min 2018 level? Stress Answer Date Recorded Do you feel stress - tense, restless, nervous, or To some extent 12/04/2018 anxious, or unable to sleep at night because your mind is troubled all the time - these days? Financial Resource Strain Answer Date Recorded How hard is it for you to pay for the very basics like Not very hard 2018 food, housing, medical care, and heating? Intimate Partner Violence Answer Date Recorded Within the last year, have you been afraid of your partner or No 12/04/2018 ex-partner? Within the last year, have you been humiliated or emotionally No 12/04/2018 abused in other ways by your partner or ex-partner? Within the last year, have you been kicked, hit, slapped, or No 12/04/2018 otherwise physically hurt by your partner or ex-partner? Within the last year, have you been raped or forced to have any No 12/04/2018 kind of sexual activity by your partner or ex-partner? Food Insecurity Answer Date Recorded Within the past 12 months, you worried that your food would Never true 2018 run out before you got money to buy more. Within the past 12 months, the food you bought just didn't Never true 2018 last and you didn't have money to get more. Transportation Needs Answer Date Recorded In the past 12 months, has lack of transportation kept you from No 12/04/2018 medical appointments or from getting medications? In the past 12 months, has lack of transportation kept you from No 12/04/2018 meetings, work, or getting things needed for daily living? Sex Assigned at Date Recorded Not on file Job Start Date Occupation Industry Not on file Not on file Not on file Travel History Travel Start Travel End No recent travel history available. documented as of this encounter Last Filed Vital Signs Vital Sign Reading Time Taken Comments Blood Pressure 118/82 08/22/2019 12:58 PM EST Pulse 81 08/22/2019 12:58 PM EST Temperature 37.2 08/22/2019 12:58 PM C (99 EST F) Respiratory Rate - - Oxygen Saturation 99% 08/22/2019 12:58 PM EST Inhaled Oxygen Concentration - - Weight 119.8 kg (264 lb 3.2 oz) 08/22/2019 12:58 PM EST Height - - Body Mass Index 46.8 08/14/2019 9:13 AM EST documented in this encounter Patient Instructions Patient InstructionsYelitza Lugo FNP - 08/22/2019 1:00 PM ESTCooler showers Zyrtec daily for 5-7 days Salt water gargles Lotrisone as directed - cover with Eucerin or similar moisturizing cream Call if no improvmentElectronically signed by Yelitza Lugo FNP at 2018 1:20 PM EST documented in this encounter Progress Notes Yelitza Lugo FNP - 08/22/2019 1:00 PM EST PATIENT: Chanelle Boss : 1945 DATE OF SERVICE: 08/22/2019 CHIEF COMPLAINT: Chief Complaint Patient presents with Sore Throat X1 day patient would not describe her ymptoms as sore throat she state that her voice is gone and that she has no cough howvever she is bringing up mucus described as "Avocado looking" Rash stomach and the side of the abdomen on the left side "itches" X1 week Subjective HISTORY OF PRESENT ILLNESS: Chanelle Boss is a 74-y.o. female. Sore Throat Associated symptoms include congestion. Pertinent negatives include no ear pain , no headaches, no shortness of breath and no cough. Rash Associated symptoms include itching. Started on Keflex for cellulitis 08/14/19 - developed allergic reaction to med - Switched to Clindamycin. Still itching - has not been taking Benadryl , did use topical steroid - helped briefly. States she does not feel ill. Past Medical History: Diagnosis Date Arthritis 09/26/2007 Tixs-lz-emqw arthritis, right knee. Narrowing left knee Atrial fibrillation (HCC) sees Dr. Bentley yearly, on Eliquis Bursitis of both hips Bursitis of both shoulders Cardiac dysrhythmia other meds failed. only left with Amiordarone, Dr. Bentley Chronic obstructive pulmonary disease (HCC) 01/20/2019 Congestive heart failure (HCC) Hearing problem Hiatal hernia History of echocardiography 2013 Dr. 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 albuterol HFA (VENTOLIN) 108 (90 Base) MCG/ACT Inhalation Aero Soln Take 2 Puffs by inhalation EVERY SIX HOURS NEEDED (wheezing). amiodarone (PACERONE, CORDARONE) 200 MG Oral Tab Take 100 mg by mouth DAILY. ANORO ELLIPTA 62.5-25 MCG/INH Inhalation AEROSOL POWDER, BREATH ACTIVATED Take 1 INHL by inhalation DAILY for 183 days. apixaban (ELIQUIS) 5 MG Oral Tab Take 1 Tab by mouth TWICE DAILY. Clindamycin HCl 300 MG Oral Cap Take 1 Cap by mouth THREE TIMES DAILY for 7 days. clotrimazole-betamethasone (LOTRISONE) 1-0.05 % Apply externally Cream Apply to rash twice a day for 7-10 days diclofenac (VOLTAREN) 1 % Transdermal Gel 4 g by Topical route FOUR TIMES DAILY NEEDED (knee pain.). Ferrous Sulfate Dried 45 MG Oral Tab CR Take 90 mg by mouth DAILY. furosemide (LASIX) 20 MG Oral Tab Take 1 Tab by mouth DAILY. metoprolol (TOPROL XL) 25 MG Oral TABLET SR 24 HR Take 25 mg by mouth TWICE DAILY. potassium chloride (K-DUR) 10 MEQ Oral Tab CR Take 1 Tab by mouth DAILY NEEDED (furosemideuse). pregabalin (LYRICA) 50 MG Oral Cap Take 1 Cap by mouth THREE TIMES DAILY NEEDED (back pain). Max Daily Amount: 150 mg. No current facility-administered medications for this visit. Allergies Allergen Reactions Atrovent Nasal [place] [Ipratropium] Rash Nose red and swollen Celebrex [Celecoxib] [employer] IN[employer]CTOR Reaction Loopy, nauseated Gluten Other Flare of arthritis Lactose GI Reaction Lactose intolerant Lidoderm Rash But can take lidocaine, likely adhesive rash Morphine GI Reaction Percocet [Oxycodone-Acetaminophen] GI Reaction Social History Socioeconomic History Marital status: Single Spouse name: Not on file Number of children: Not on file Years of education: Not on file Highest education level: Not on file Occupational History Not on file Social Needs Financial resource strain: Not very hard Food insecurity Worry: Never true Inability: Never true Transportation needs Medical: No Non-medical: No Tobacco Use Smoking status: Former Smoker Packs/day: 1.00 Years: 20.00 Pack years: 20.00 Types: Cigarettes Last attempt to quit: 04/03/1995 Years since quittin.4 Smokeless tobacco: Never Used Tobacco comment: quit ~1994 Substance and Sexual Activity Alcohol use: Yes Alcohol/week: 0.0 standard drinks Comment: infreq Drug use: No Sexual activity: Not Currently Comment: Lifestyle Physical activity Days per week: 0 days Minutes per session: 0 min Stress: To some extent Relationships Social connections Talks on phone: More than three times a week Gets together: More than three times a week Attends quaker service: Not on file Active member of club or organization: Not on file Attends meetings of clubs or organizations: Not on file Relationship status: Not on file Intimate partner violence Fear of current or ex partner: No Emotionally abused: No Physically abused: No Forced sexual activity: No Other Topics Concern Back Care Not Asked Bike Helmet Not Asked Blood Transfusions Yes Comment: q4 years "blood evaporates" many EGD/colonoscopies --source not found. --is on chronic iron. Caffeine Concern Not Asked Exercise No Comment: too tired to exercise. Hobby Hazards Not Asked International Travel Not Asked Service Not Asked Occupational Exposure Not Asked Seat Belt Not Asked Self-Exams Not Asked Sleep Concern Not Asked Special Diet Not Asked Stress Concern Not Asked Weight Concern Not Asked Social History Narrative Diviorced. Lives alone (grandson lives with her 90% of the time) Retired November 2009 ([employer]). Pets: 1 dog. Has two children in the area. Dating REVIEW OF SYSTEMS: Review of Systems Constitutional: Negative for chills, fever and malaise/fatigue. HENT: Positive for congestion. Negative for ear pain and sore throat. Respiratory: Negative for cough and shortness of breath. Skin: Positive for itching and rash. Neurological: Negative for dizziness and headaches. Objective PHYSICAL EXAM: VITALS: BP 118/82 (BP Location: Left arm, Patient Position: Sitting) | Pulse 81 | Temp 99 F (37.2 C) (Tympanic) | Wt 264 lb 3.2 oz (119.8 kg) | SpO2 99% | BMI 46.80 kg/m Body mass index is 46.8 kg/m. Physical Exam Vitals signs and nursing note reviewed. Constitutional: General: She is not in acute distress. Appearance: She is obese. Comments: hoarse HENT: Head: Normocephalic and atraumatic. Nose: Congestion present. No rhinorrhea. Mouth/Throat: Mouth: Mucous membranes are moist. Pharynx: Oropharynx is clear. Eyes: Conjunctiva/sclera: Conjunctivae normal. Pupils: Pupils are equal, round, and reactive to light. Neck: Musculoskeletal: Normal range of motion. No neck rigidity. Cardiovascular: Rate and Rhythm: Normal rate and regular rhythm. Pulmonary: Effort: Pulmonary effort is normal. Breath sounds: Normal breath sounds. Lymphadenopathy: Cervical: No cervical adenopathy. Skin: General: Skin is warm and dry. Capillary Refill: Capillary refill takes less than 2 seconds. Findings: Rash present. Neurological: Mental Status: She is alert and oriented to person, place, and time. Cranial Nerves: Cranial nerves are intact. Psychiatric: Behavior: Behavior is cooperative. ASSESSMENT / IMPRESSION: ICD-9-CM ICD-10-CM 1. Viral laryngitis 464.00 J04.0 B97.89 2. Allergic reaction to drug, subsequent encounter V58.89 T78.40XD clotrimazole- betamethasone (LOTRISONE) 1-0.05 % Apply externally Cream 995.27 Plan Cooler showers Zyrtec daily for 5-7 days Salt water gargles Lotrisone as directed - cover with Eucerin or similar moisturizing cream Call if no improvment Author: ANNALISE Milan 08/22/2019 13:27 documented in this encounter Plan of Treatment Date Type Specialty Care Team Description 09/11/2019 Office Visit Family Practice Rebeca Cao MD [address] [place] [address] [phone] 10/23/2019 Office Visit Pulmonary Javier Abel MD [address] [place] [address] [phone] Health Maintenance Due Date Last Done Comments DTaP/Tdap/Td Vaccines (1 - 1956 Tdap) ZOSTER IMMUNIZATION SERIES 1995 (1 of 2) MAMMOGRAM (SCREENING) 10/15/2015 10/15/2013, 10/15/2013 INFLUENZA VACCINE (#1) 2019 06/07/2018, 06/20/2017, 05/16/2016, Additional history exists DEPRESSION SCREENING 12/05/2019 12/04/2018, 10/30/2017 FALL RISK ASSESSMENT 12/05/2019 12/04/2018, 12/04/2018 LIPID DISORDER SCREENING 12/05/2019 12/04/2018, 07/06/2010 MEDICARE ANNUAL WELLNESS 12/05/2019 12/04/2018, 06/20/2017 VISIT Cologuard Screening 11/15/2020 11/15/2017 PNEUMOCOCCAL 65+YRS Completed 05/16/2016, 09/03/2013 HEPATITIS A IMMUNIZATION Aged Out No longer eligible SERIES based on patient's age to complete this topic HPV IMMUNIZATION SERIES Aged Out No longer eligible based on patient's age to complete this topic MENINGOCOCCAL VACCINE IMM Aged Out No longer eligible based on patient's age to complete this topic documented as of this encounter Goals Goal Patient Goal Associated Recent Patient-Stated? Author Type Problems Progress Blood Pressure Blood 118/82 No Kiley, < 150/90 Pressure (08/22/2019 Rebeca Mcknight, 12:58 PM EST) Note: This is an individualized treatment (blood pressure) goal for Chanelle Boss: Displayed above (on the left) is your goal for blood pressure control. Your most recent blood pressure is also shown above, on the right. You should try to achieve blood pressures that are lower than your goal listed above (on the left). Weight loss vs. 18 Lifestyle 14.8 (08/22/2019 12:58 PM No Rebeca Cao, mo max (lbs) >= 10 EST) Note: This is an individualized lifestyle goal for Chanelle Boss: Your body mass index (BMI) is more than 30. You should lose weight. A reasonable starting goal is to lose 10 pounds. Displayed above is how many pounds you have lost thus far towards your 10 pound weight loss goal. Keep immunizations current Lifestyle No Rebeca Cao MD Note: This is an individualized lifestyle goal for Chanelle Boss: Please be sure to keep up-to-date on recommended immunizations. For example, this would include a yearly influenza vaccine. Immunization status can be seen by looking at the Health Maintenance sections of your [facility], Plan of Care, and any After Visit Summaries. Take all prescribed medications as Self-management No Rebeca Cao MD directed Note: This is an individualized self-management goal for Chanelle Boss: Please take all prescribed medications as directed. 1. Do not skip doses. If you cannot afford your medications, talk with your doctor. 2. Use a pill reminder system such as a pill box if needed. Your pharmacist can help you with this. 3. Contact your Pharmacy 5 days before your medication runs out. If you cannot take your medications for any reasons, talk with your doctor. 4. Please bring all of your medication bottles and inhalers (or a list of all your medications/inhalers) with you to every visit. Potential barriers to meeting all of your care plan goals will continue to be addressed on an ongoing basis. documented as of this encounter Results Not on filedocumented in this encounter Visit Diagnoses Diagnosis Viral laryngitis Acute laryngitis, without mention of obstruction Allergic reaction to drug, subsequent encounter documented in this encounter Insurance Payer Benefit Plan / Subscriber ID Effective Dates Phone Address Type Group obopay MEDICARE EXCELL xxxxxxxxxxxx 2015-Present [employer] MEDIC[employer] BLUE PPO ([phone]) Guarantor Name Account Type Relation to Date of Phone Billing Patient Address Chanelle Boss Personal/Family [phone] (Home) [facility] [address], [place] (Work) [id number] documented as of this encounter
--- OUTSIDE RECORDS SUMMARY | 2019-10-14 08:42 | XMS REPORT | Summary of Care ---
:1945 Author Organization [facility] Address [address] [id number] Care Team Providers Name Role Phone Rebeca Cao MD Primary Care Provider Jaret Bentley MD Unavailable Reason for Visit Reason Comments Pre-Op Exam knee replacement Allergic Reaction ankle, hands, back, stomach, breasts, taking bendryl Encounter Details Date Type Department Care Team Description 09/11/2019 Office Visit [facility] Kiley, Preop examination ( Primary Dx); Practice Rebeca Mcknight MD Psoriasis; [address] Arthritis; [place] [address] Hypertension, benign; [phone] Paroxysmal atrial fibrillation (HCC); Chronic obstructive pulmonary disease, unspecified COPD type (HCC); Pacemaker; prison current use of anticoagulant therapy Allergies Active Allergy Reactions Severity Noted Date Comments Ipratropium Rash 12/22/2016 Nose red and swollen Celecoxib HAND ROLLER Reaction 09/26/2007 Loopy, nauseated Gluten Other 07/06/2010 Flare of arthritis Keflex Hives Medium 09/11/2019 Lactose GI Reaction 12/04/2018 Lactose intolerant Lidoderm Rash 07/06/2010 But can take lidocaine, likely adhesive rash Morphine GI Reaction Medium 01/12/2011 Headaches also, severe migraines Oxycodone-Acetaminophen GI Reaction 01/12/2011 documented as of this encounter (statuses as of 09/11/2019) Medications Medication Sig Dispensed Refills Start Date End Date Status metoprolol (TOPROL Take 25 mg by 0 Active XL) 25 MG Oral TABLET mouth TWICE SR 24 HR DAILY. amiodarone (PACERONE, Take 100 mg by 0 Active CORDARONE) 200 MG mouth DAILY. Oral Tab Ferrous Sulfate Dried Take 90 mg by 0 Active 45 MG Oral Tab CR mouth DAILY. furosemide (LASIX) 20 Take 1 Tab by 90 Tab 1 01/15/2017 Active MG Oral mouth DAILY. TabIndications: Essential hypertension potassium chloride Take 1 Tab by 30 Tab 5 02/13/2017 Active (K-DUR) 10 MEQ Oral mouth DAILY Tab CRIndications: NEEDED Edema, unspecified (furosemide use). type apixaban (ELIQUIS) 5 Take 1 Tab by 180 Tab 1 07/23/2017 Active MG Oral mouth TWICE TabIndications: DAILY. Atrial fibrillation, unspecified type ([facility]) albuterol HFA Take 2 Puffs by 2 Inhaler 5 10/09/2018 Active (VENTOLIN) 108 (90 inhalation EVERY Base) MCG/ACT SIX HOURS Inhalation Aero NEEDED SolnIndications: RAD (wheezing). (reactive airway disease), mild intermittent, uncomplicated diclofenac (VOLTAREN) 4 g by Topical 100 g 3 02/18/2019 Active 1 % Transdermal route FOUR TIMES GelIndications: DAILY NEEDED Arthritis (knee pain.). acetaminophen Take 250 mg by 0 Active (TYLENOL) 500 MG Oral mouth DAILY. Tab pregabalin (LYRICA) Take 1 Cap by 90 Cap 1 08/14/2019 Active 50 MG Oral mouth THREE TIMES CapIndications: DAILY NEEDED Lumbar back pain with (back pain). Max radiculopathy Daily Amount: 150 affecting left lower mg. extremity ANORO ELLIPTA 62.5-25 Take 1 INHL by 60 Each 6 08/16/2019 02/15/2020 Active MCG/INH Inhalation inhalation DAILY AEROSOL POWDER, for 183 days. BREATH ACTIVATEDIndications: Chronic obstructive pulmonary disease, unspecified COPD type ([facility]) clotrimazole-betameth Apply to rash 45 g 0 08/22/2019 Active asone (LOTRISONE) twice a day for 1-0.05 % Apply 7-10 days externally CreamIndications: Allergic reaction to drug, subsequent encounter fluocinonide (LIDEX) Thin layer bid to 120 g 1 09/11/2019 09/20/2019 Active 0.05 % Apply affected area externally upto 10 days. 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 Arthritis 09/26/2007 Overview: [id number] arthritis, right knee. Narrowing left knee Psoriasis documented as of this encounter (statuses as of 09/11/2019) Immunizations Name Administration Dates Next Due Influenza [...] or relatives? How often do you attend advent or Not asked anabaptism services? Do you belong to any clubs or Not asked organizations such as advent groups, unions, fraternal or athletic groups, or [...] Sign Reading Time Taken Comments Blood Pressure 110/80 09/11/2019 9:34 AM EST Pulse 78 09/11/2019 9:34 AM EST Temperature 37.2 09/11/2019 9:34 AM EST C (99 F) Respiratory Rate - - Oxygen Saturation 98% 09/11/2019 9:34 AM EST Inhaled Oxygen Concentration - - Weight 118.4 kg (261 lb) 09/11/2019 9:34 AM EST Height 160 cm (5' 3") 09/11/2019 9:34 AM EST Body Mass Index 46.23 09/11/2019 9:34 AM EST documented in this encounter Patient Instructions Patient InstructionsRebeca Cao MD - 09/11/2019 9:20 AM KRYSTAL did your preop exam today. Proceed with surgery as planned, assuming Dr Bentley clears you. No food or liquids the morning of surgery. Call surgeon if develop respiratory illness, fever, or other illness. Do not rip open the skin on your left leg, avoid all skin infections on that leg. I sent in a cortisone cream for your psoriasis. If rash continues, see dermatology. documented in this encounter Progress Notes Rebeca Cao MD - 09/11/2019 9:20 AM EST Nursing Notes: Lorelei Villalta LPN 09/11/2019 9:46 AM Signed Chief Complaint Patient presents with Pre-Op Exam knee replacement Allergic Reaction ankle, hands, back, stomach, breasts, taking bendryl Creel Cleaner: Dr Abel Proof Coin Collector: Dr Bentley PATIENT: Chanelle Boss : 1945 DATE OF SERVICE: 09/11/2019 Subjective SUBJECTIVE: Chanelle Boss is a 74-y.o. female who presents to the office today for a preoperative consultationat the request of Dr Morse, who will perform a left total knee replacement on 10/14/2019. She plans to go home with home Physical Therapy after. She has hives from Keflex, has been itching for a month. Has scaled pruritic skin on right hand, lower back, leg Patient complains of cardiac symptoms: none. Patient denies cardiac symptoms: chest pain, dyspnea, palpitations, syncope, paroxysmal nocturnal dyspnea, lower extremity edema. Past history of pulmonary embolism/deep vein thrombosis: no. There is a history of bleeding complications: no Past history of anesthetic problem: Yes. sensitive to anesthesia, and morphine causes severe headaches. Exercise capacity: Can you walk 2 blocks on level ground, or carry 2 bags of groceries up 2 flights of stairs? Yes Count the number of risk factors in the revised [place] cardiac risk index. ( RCRI): 1 High risk procedure: eg vascular surgery, any open intraperitoneal or intrathoracic 1 History of ischemic heart disease (history of VA or a positive exercise test , current complaint of chest pain considered to be secondary to myocardial ischemia, use of nitrate therapy, or ECG with pathological Q waves; do not count prior coronary revascularization procedure unless one of the other criteria for ischemic heart disease is present) 1 Hx of CHF, either systolic or diastolic 0 History of cerebrovascular disease (TIA or Stroke) 1 Diabetes mellitus requiring treatment with insulin 0 Preoperative serum creatinine >2.0 mg/dl The risk of cardiac , nonfatal myocardial infarction, and nonfatal cardiac arrest according to the number of above risk predictors is estimated to be: Three or more risk factors - 5.4 percent (95% CI: 2.8 - 7.9) Screening for sleep apnea: Stop-Bang 0 Snoring: Do you snore loudly (louder than talking or heard through closed doors)? 0 Tired: Do you often feel tired, fatigued, or sleepy during the day? 0 Observed: Has anyone observed you stop breathing during your sleep? 0 Pressure: Do you have or are you being treated for high blood pressure? 1 BMI: >35 kg/m2? 1 Age: >50? 0 Neck circumference: >40 cm? 0 Gender: Male? "Low risk" for JORGE: <3 questions "yes" Screening for Alzheimer's 1. During the past 12 months, have you experienced confusion or memory loss that is happening more often or is getting worse? No 2. During the past 7 days, did you need help with others to perform everyday activities such as eating, getting dressed, grooming, bathing, walking, or using the toilet? No 3. During the past 7 days, did you need help from others to take care of things such as laundry and housekeeping, banking, shopping, using the telephone, food preparation, transportation, or taking your own medications? No If positive, the minicog was administered. See Scanned tab. 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 Arthritis 09/26/2007 Xpkx-[id number] arthritis, right knee. Narrowing left knee Past Medical History: Diagnosis Date Arthritis 09/26/2007 Fdgv-ln-[id number] arthritis, right knee. 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 clotrimazole-betamethasone (LOTRISONE) 1-0.05 % Apply externally Cream Apply to rash twice a day for 7-10 days diclofenac (VOLTAREN) 1 % Transdermal Gel 4 g by Topical route FOUR TIMES DAILY NEEDED (knee pain.). Ferrous Sulfate Dried 45 MG Oral Tab CR Take 90 mg by mouth DAILY. fluocinonide (LIDEX) 0.05 % Apply externally Cream Thin layer bid to affected area upto 10 days. furosemide (LASIX) 20 MG Oral Tab Take [...] medications for this visit. Allergies Allergen Reactions Keflex Hives Morphine GI Reaction Headaches also, severe migraines Atrovent Nasal [place] [Ipratropium] Rash Nose red and swollen Celebrex [Celecoxib] HAND ROLLER Reaction Loopy, nauseated Gluten Other Flare of arthritis Lactose GI Reaction Lactose intolerant Lidoderm Rash But can take lidocaine, likely adhesive rash Percocet [Oxycodone-Acetaminophen] GI Reaction Social History Socioeconomic [...] More than three times a week Attends anabaptism service: Not on file Active member of [...] 90% of the time) Retired November 2009 ([employer]). Pets: 1 dog. Has two children in the area. Dating Office Visit on 06/05/2019 Component Date Value Ref Range Status Glucose 06/05/2019 93 70 - 99 mg/dl Final BUN 06/05/2019 16 7 - 17 mg/dl Final Creatinine 06/05/2019 0.8 0.7 - 1.2 mg/dl Final Sodium 06/05/2019 142 134 - 145 mmol/L Final Potassium 06/05/2019 4.3 3.5 - 5.1 mmol/L Final Chloride 06/05/2019 106 98 - 107 mmol/L Final CO2 06/05/2019 23 22 - 30 mmol/L Final Calcium 06/05/2019 9.9 8.3 - 10.1 mg/dl Final eGFR 06/05/2019 >60 See Interpretation Below ml/min/1.73ml Sq Final Estimated GFR Interpretation: Above 60ml/min/1.73m2 = Normal Renal Function 30-59 ml/min/1.73m2 = Stage 3 Chronic Kidney Disease 15-29 ml/min/1.73m2 = Stage 4 Chronic Kidney Disease Less than 15 ml/min/1.73m2 = Stage 5 Chronic Kidney Disease The GFR value is calculated using the Modification of Diet in Renal Disease ( MDRD) Study Equation which can be found at: https://www.kidney.org/content/zvam-wimza-njznbbpm BUN/Creatinine Ratio 06/05/2019 20 6 - 22 RATIO Final Anion Gap 06/05/2019 13* 3 - 11 mmol/L Final WBC Count 06/05/2019 5.05 3.98 - 10.04 K/uL Final RBC Count 06/05/2019 4.71 3.93 - 5.22 M/UL Final Hemoglobin 06/05/2019 14.8 11.2 - 15.7 g/dL Final Hematocrit 06/05/2019 45.6* 34.1 - 44.9 % Final MCV 06/05/2019 96.8* 79.4 - 94.8 FL Final MCH 06/05/2019 31.4 25.6 - 32.2 PG Final MCHC 06/05/2019 32.5 32.2 - 35.5 g/dL Final Platelet Count 06/05/2019 172* 182 - 369 K/uL Final MPV 06/05/2019 11.3 9.4 - 12.3 FL Final RDW 06/05/2019 14.6* 11.7 - 14.4 % Final Neutrophil % 06/05/2019 61.0 34.0 - 71.1 % Final Lymphocyte % 06/05/2019 26.5 19.3 - 51.7 % Final Monocyte % 06/05/2019 9.9 4.7 - 12.5 % Final Eosinophil % 06/05/2019 2.0 0.7 - 5.8 % Final Basophil % 06/05/2019 0.6 0.1 - 1.2 % Final nRBC % 06/05/2019 0.0 0.0 - 0.2 % Final Neutrophil # 06/05/2019 3.08 1.56 - 6.13 K/UL Final Lymphocyte # 06/05/2019 1.34 1.18 - 3.74 K/UL Final Monocyte # 06/05/2019 0.50 0.24 - 0.86 K/UL Final Eosinophil # 06/05/2019 0.10 0.04 - 0.36 K/UL Final Basophil # 06/05/2019 0.03 0.01 - 0.08 K/UL Final Immature Gran % 06/05/2019 0.0 0.0 - 0.4 % Final Immature Gran # 06/05/2019 0.00 0.00 - 0.03 K/uL Final NRBC # 06/05/2019 0.00 0.00 - 0.12 K/uL Final Free T4 06/05/2019 1.7 0.8 - 2.2 NG/DL Final TSH 06/05/2019 4.02 0.47 - 4.68 uIu/ml Final REVIEW OF SYSTEMS: The patient has dentures: Yes The last dental visit was: no teeth The patient has hearing aids: No General ROS: negative for - chills or fever, unexpected weight changes ENT ROS: negative for - headaches, nasal congestion, nasal discharge, sinus pain , sore throat or visual changes Respiratory ROS: negative for - cough, hemoptysis or shortness of breath Cardiovascular ROS: negative for - chest pain, dyspnea on exertion, edema or palpitations Gastrointestinal ROS: no abdominal pain, change in bowel habits, or black or bloody stools Genito-Urinary ROS: no dysuria, trouble voiding, or hematuria Neuro: denies headache, focal weakness, numbness Psych: Denies depression Skin: Has pruritic rash on bottocks bilaterally, left arm, ankles, 2 healing scabs on left knee. Psoriasis acting up also Office Visit on 06/05/2019 Component Date Value Ref Range Status Glucose 06/05/2019 93 70 - 99 mg/dl Final BUN 06/05/2019 16 7 - 17 mg/dl Final Creatinine 06/05/2019 0.8 0.7 - 1.2 mg/dl Final Sodium 06/05/2019 142 134 - 145 mmol/L Final Potassium 06/05/2019 4.3 3.5 - 5.1 mmol/L Final Chloride 06/05/2019 106 98 - 107 mmol/L Final CO2 06/05/2019 23 22 - 30 mmol/L Final Calcium 06/05/2019 9.9 8.3 - 10.1 mg/dl Final eGFR 06/05/2019 >60 See Interpretation Below ml/min/1.73ml Sq Final Estimated GFR Interpretation: Above 60ml/min/1.73m2 = Normal Renal Function 30-59 ml/min/1.73m2 = Stage 3 Chronic Kidney Disease 15-29 ml/min/1.73m2 = Stage 4 Chronic Kidney Disease Less than 15 ml/min/1.73m2 = Stage 5 Chronic Kidney Disease The GFR value is calculated using the Modification of Diet in Renal Disease ( MDRD) Study Equation which can be found at: https://www.kidney.org/content/qoor-olbvi-cbejqkaa BUN/Creatinine Ratio 06/05/2019 20 6 - 22 RATIO Final Anion Gap 06/05/2019 13* 3 - 11 mmol/L Final WBC Count 06/05/2019 5.05 3.98 - 10.04 K/uL Final RBC Count 06/05/2019 4.71 3.93 - 5.22 M/UL Final Hemoglobin 06/05/2019 14.8 11.2 - 15.7 g/dL Final Hematocrit 06/05/2019 45.6* 34.1 - 44.9 % Final MCV 06/05/2019 96.8* 79.4 - 94.8 FL Final MCH 06/05/2019 31.4 25.6 - 32.2 PG Final MCHC 06/05/2019 32.5 32.2 - 35.5 g/dL Final Platelet Count 06/05/2019 172* 182 - 369 K/uL Final MPV 06/05/2019 11.3 9.4 - 12.3 FL Final RDW 06/05/2019 14.6* 11.7 - 14.4 % Final Neutrophil % 06/05/2019 61.0 34.0 - 71.1 % Final Lymphocyte % 06/05/2019 26.5 19.3 - 51.7 % Final Monocyte % 06/05/2019 9.9 4.7 - 12.5 % Final Eosinophil % 06/05/2019 2.0 0.7 - 5.8 % Final Basophil % 06/05/2019 0.6 0.1 - 1.2 % Final nRBC % 06/05/2019 0.0 0.0 - 0.2 % Final Neutrophil # 06/05/2019 3.08 1.56 - 6.13 K/UL Final Lymphocyte # 06/05/2019 1.34 1.18 - 3.74 K/UL Final Monocyte # 06/05/2019 0.50 0.24 - 0.86 K/UL Final Eosinophil # 06/05/2019 0.10 0.04 - 0.36 K/UL Final Basophil # 06/05/2019 0.03 0.01 - 0.08 K/UL Final Immature Gran % 06/05/2019 0.0 0.0 - 0.4 % Final Immature Gran # 06/05/2019 0.00 0.00 - 0.03 K/uL Final NRBC # 06/05/2019 0.00 0.00 - 0.12 K/uL Final Free T4 06/05/2019 1.7 0.8 - 2.2 NG/DL Final TSH 06/05/2019 4.02 0.47 - 4.68 uIu/ml Final Objective OBJECTIVE: BP 110/80 | Pulse 78 | Temp 99 F (37.2 C) | Ht 5' 3" (1.6 m) | Wt 261 lb (118.4 kg) | SpO2 98% | BMI 46.23 kg/m Mallampati score: 3 Physical Examination: General appearance - alert, well appearing, and in no distress Mental status - alert, oriented to person, place, and time, normal mood, behavior, speech, dress, motor activity, and thought processes Eyes - pupils equal and reactive, extraocular eye movements intact, sclera anicteric Ears - bilateral TM's and external ear canals normal' Throat: No erythema Neck - supple, no cervical or supraclavicular adenopathy, carotids upstroke normal bilaterally, no bruits, thyroid exam: thyroid is normal in size without nodules or tenderness, no neck masses palpated. Chest/Lungs - clear to auscultation, no wheezes, rales or rhonchi, symmetric air entry, good aeration Heart - normal rate, regular rhythm, normal S1, S2, 2/6 systolic murmurs, rubs, clicks or gallops Abdomen - soft, non tender on palpation, nondistended, no masses or hepatosplenomegaly, bowel soundsnormal, normal to percussion, no guarding or rebound. No costervertebral angle tenderness Neurological - alert, oriented, normal speech, no gross focal findings or movement disorder noted Extremities - dorsalis pedis pulses normal, no pedal edema, no clubbing or cyanosis Skin: She has areas of crusted lesion on upper buttocks, L>R, in clusters, itches. Could have been Shingles but crossing the midline is unusual. It is crusted and resolving. She has scaling right hand and wrist, small discoid areas of scaling on lower legs R>L, 3-4 smallscabs that are healing on her left knee. She complains the areas are pruritic. I told her her leg has to be healed with no nidus for infection prior to surgery. ASSESSMENT: No contraindications to planned surgery on my exam assuming her lesions on her leg heal and she obtains full cardiac clearance will be by her Proof Coin Collector next week. 1. Preop examination 2. Psoriasis 3. Arthritis 4. Hypertension, benign 5. Paroxysmal atrial fibrillation (HCC) 6. Chronic obstructive pulmonary disease, unspecified COPD type (HCC) 7. 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 Anticoagulation: The patient is on an anticoagulant which is Eliquis. Recommendations regarding stopping these medications before surgery: patient will discuss with her Proof Coin Collector next week Plan PLAN: 1. Patient requires endocarditis prophylaxis: No, but ask Dr Bentley. 2. Recommend perioperative beta-seth: Already on metoprolol, continue it.. 3. Patient requires perioperative deep vein thrombosis prophylaxis: yes. 4. General preoperative instructions for patient. Proceed with surgery as planned. No food or liquids the morning of surgery. Call surgeon if develop respiratory illness, fever, or other illness. Letter sent to requesting surgeon listed above. Written preoperative instructions given. Patient Instructions I did your preop exam today. Proceed with surgery as planned, assuming Dr Bentley clears you. No food or liquids the morning of surgery. Call surgeon if develop respiratory illness, fever, or other illness. Do not rip open the skin on your left leg, avoid all skin infections on that leg. I sent in a cortisone cream for your psoriasis. If rash continues, see dermatology. Author: Rebeca Cao MD 09/11/2019 12:30 documented in this encounter Plan of Treatment Health Maintenance Due Date Last Done Comments DTaP/Tdap/Td Vaccines ( - 1956 Tdap) ZOSTER IMMUNIZATION SERIES 1995 [...] Author Type Problems Progress Blood Pressure Blood 110/80 No Kiley, < 150/90 Pressure (09/11/2019 Rebeca Mcknight, 9:34 AM EST) Note: This is an individualized treatment (blood pressure) goal for Chanelle Boss: Displayed above (on the left) is your goal for blood pressure control. Your most recent blood pressure is also shown above, on the right. You should try to achieve blood pressures that are lower than your goal listed above (on the left). Weight loss vs. 18 Lifestyle 18 (09/11/2019 9:34 AM No Rebeca Cao mo max (lbs) >= 10 EST) Note: This is an individualized lifestyle goal for Chanelle Boss: Your body mass index (BMI) is more than 30. You should lose weight. A reasonable starting goal is to lose 10 pounds. Displayed above is how many pounds you have lost thus far towards your 10 pound weight loss goal. Keep immunizations current Lifestyle Rebeca Rios MD Note: This is an individualized lifestyle goal for Chanelle Boss: Please be sure to keep up-to-date on recommended immunizations. For example, this would include a yearly influenza vaccine. Immunization status can be seen by looking at the Health Maintenance sections of your [employer], Plan of Care, and any After Visit Summaries. 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 (Home) [facility] [address], [place] (Work) [phone] documented as of this encounter
--- OUTSIDE RECORDS SUMMARY | 2019-10-14 08:42 | XMS REPORT | Continuity of Care Document ---
:1945 External Reference #:[id number] Author Name Masood Morse M.D. (transmitted by agent of provider Tayla Saravia) Address [address] [place] [address] [place] [address] Care Team Providers Name Role Phone Rebeca Cao MD - Care Team Information Manager Skilled Family Medicine Problems Active Problems Provider Date [...] Use Denies Drug Use Smoking Status Reviewed: 08/26/19 Patient is a former quit in 1994 smoker Exercise Type/Frequency Does not exercise Allergies, Adverse Reactions, Alerts Active Allergies Reaction Severity Comments Date Pregabalin swelling 07/04/2013 Rofecoxib 07/04/2013 Celecoxib 07/04/2013 Oxycodone 07/04/2013 Naproxen 07/04/2013 Morphine 07/04/2013 Ibuprofen 07/04/2013 Aspirin 07/04/2013 Fentanyl palpitations,nausea, H/A per patient 04/03/2014 Triple Antibiotic Ointment Urticaria Moderate 09/14/2017 Dairy abdominal pain 02/20/2018 Gluten inflammation 02/20/2018 Medications Active Medications SIG Qnty Indications Ordering Provider Date Metoprolol Succinate 1 by mouth 180tabs Jaret Bentley, 07/07/2015 ER twice a day M.D. 25mg Tablets ER 24HR Amiodarone HCL 1/2 tab by 45tabs Jaret Bentley, 07/22/2014 200mg mouth every day M.D. Tablets Eliquis 1 by mouth 180tabs Jaret Bentley, 5mg Tablets twice a day M.D. Medications Administered in Office Medication SIG Qnty Indications Ordering Provider Date Technetium TC 99M Ica Nuclear Schedule 09/24/2017 Tetrofosmin, Per Unit Dose Up To 40 Millicuries Injection Inj, Regadenoson, 0.1 MG Pedro Luis Reyes M.D., 09/19/2017 Injection FACC, FASNC Technetium TC 99M Pedro Luis Reyes M.D., 09/19/2017 Tetrofosmin, Per Unit Dose FACC, FASNC Up To 40 Millicuries Injection Depomedrol 40MG Masood Morse M.D. 08/06/2017 Injection Immunizations Description No Information Available Vital Signs Date Vital Result Comment 08/26/2019 9:35am Height 63.5 inches 5'3.50" Weight 263.25 lb Heart Rate 60 /min BP Systolic 132 mmHg BP Diastolic 82 mmHg Respiratory Rate 16 /min Body Temperature 97.8 F Pain Level 7 BMI (Body Mass Index) 45.9 kg/m2 02/14/2019 11:07am Height 64 inches 5'4" Weight 294.00 lb with shoes Heart Rate 66 /min BP Systolic Sitting 124 mmHg Lue lg cuff BP Diastolic Sitting 80 mmHg Lue lg cuff BP Systolic Standing 122 mmHg Lue lg cuff BP Diastolic Standing 80 mmHg Lue lg cuff Respiratory Rate 16 /min BMI (Body Mass Index) 50.5 kg/m2 Results Description No Information Available Procedures Date Code Description Status 08/20/2019 80876 Pace Maker Eval W/Iterative Adjment Dual Lead Completed Medical Devices Description No Information Available Encounters Description No Information Available Assessments Date Code Description Provider 08/26/2019 M17.12 Unilateral primary osteoarthritis, left knee Masood Morse M.D. 08/20/2019 I49.5 Sick sinus syndrome Ica Pacer Schedule 08/20/2019 Z95.0 Presence of cardiac pacemaker Ica Pacer Schedule Plan of Treatment Future Appointment(s):10/06/2019 11:00 am - Radha Hutchinson MD at [facility]09/17/2019 8:45 am - Jaret Bentley M.D. at [facility]08/26/2019 - Masood Morse M.D.M17.12 Unilateral primary osteoarthritis, left knee Functional Status Description No Information Available Mental Status Description No Information Available Referrals Description No Information Available
[2019-10-14] MEDS ORDERED: Buffered Lidocaine 1% SYRIN* 1 ML/SYRINGE INTRADERM ONE (08:58)
[2019-10-14] MEDS ORDERED: ceFAZolin 2 GM in NS PREMIX(*) 2 GM/100 ML BAG IVPB ONE (08:58)
[2019-10-14] MEDS ORDERED: Famotidine IV* 10 MG/ML 2 ML (20 mg) ONE (08:58)
[2019-10-14] MEDS ORDERED: Midazolam* 1 MG/ML 5 ML VIAL (5 MG) ONE (09:48)
[2019-10-14 10:18] LABS: INR 1.07 (0.82-1.09)
[2019-10-14 10:21] LABS: BUN/Creatinine Ratio 22.1 (8-20); Calcium 9.4 mg/dL (8.6-10.3); EGFR Non-African American 64.5 (>60); Potassium 4.1 mmol/L (3.5-5.0)
[2019-10-14] MEDS ORDERED: Ropivacaine (OR use only) 2 MG/ML 10 ML ONE (11:25)
[2019-10-14] MEDS ORDERED: Lidocaine 1% MPF ** 5 ML VIAL ONE (11:25)
[2019-10-14] MEDS ORDERED: ROPIVACAINE 5 MG/ML 30 ML BTL (0.5%) ONE (11:26)
[2019-10-14] MEDS ORDERED: fentaNYL* 50 MCG/ML 2 ML VIAL (100 MCG VIAL) ONE (12:31)
[2019-10-14] MEDS ORDERED: DiMENhydriNATE IV* 50 MG/ML VIAL ONE (12:50)
[2019-10-14] MEDS ORDERED: Dexamethasone IV* 4 MG/ML 1 ML (4 MG) ONE (12:50)
[2019-10-14] MEDS ORDERED: Ketorolac INJ* 30 MG/ML 1 ML VIAL ONE (12:50)
[2019-10-14] MEDS ORDERED: Propofol* 10 MG/ML 20 ML BTL ONE ×2 (12:50→15:04)
[2019-10-14] MEDS ORDERED: Succinylcholine* 20 MG/ML 10 ML VIAL ONE (12:50)
[2019-10-14] MEDS ORDERED: Acetaminophen IV 1GM/100ML * 100 ML ONE (12:51)
[2019-10-14] MEDS ORDERED: diPHENhydraMINE IV* 50 MG/ML 1 ml VIAL (BENADRYL) ONE (12:51)
[2019-10-14] MEDS ORDERED: Phenylephrine 10 MG/ML VIAL* 1 ML VIAL ONE (12:51)
[2019-10-14] MEDS ORDERED: Phenylephrine 40 MCG/ML SYRINGE ONE (12:51)
[2019-10-14] MEDS ORDERED: KETAMINE HCL* 50 MG/ML 10 ML VIAL ONE (12:58)
[2019-10-14] MEDS ORDERED: HYDROmorphone INJ1* 1 MG/ML SYRINGE IV PRN (14:17)
[2019-10-14] MEDS ORDERED: DiMENhydriNATE IV* 50 MG/ML VIAL IV PUSH PRN (14:17)
[2019-10-14] MEDS ORDERED: Naloxone* 0.4 MG/ML 1 ML VIAL IV PRN (14:17)
[2019-10-14] MEDS ORDERED: Levalbuterol 0.63MG/3ML NEB* UNIT OF USE INH PRN (14:17)
[2019-10-14] MEDS ORDERED: Ondansetron INJ* 2 MG/ML VIAL ONE (14:31)
[2019-10-14] MEDS ORDERED: HYDROmorphone INJ1* 1 MG/ML SYRINGE ONE (14:43)
[2019-10-14] MEDS ORDERED: diPHENhydraMINE IV* 50 MG/ML 1 ml VIAL (BENADRYL) IV PRN (15:37)
[2019-10-14] MEDS ORDERED: Cyclobenzaprine TAB* 10 MG PO PRN (15:37)
[2019-10-14] MEDS ORDERED: Ondansetron INJ* 2 MG/ML VIAL IV PRN (15:37)
[2019-10-14] MEDS ORDERED: diPHENhydraMINE PO* 25 MG PO PRN (15:37)
[2019-10-14] MEDS ORDERED: Ondansetron ODT TAB* 4 MG PO PRN (15:37)
[2019-10-14] MEDS ORDERED: Magnesium Hydroxide LIQ* 30 ML UDC PO PRN (15:37)
[2019-10-14] MEDS ORDERED: HYDROcodone/ACETAMIN 5-325 MG* 1 TAB PO PRN (16:25)
[2019-10-14] MEDS: Lactated Ringers 1000 ML Bag* 1,000 ML IV SCH ×2 (17:26→22:21)
--- NOTE | 2019-10-14 17:47 | CONSULT ---
Subjective Date of Service: 10/14/19 Interval History: HOSPITALIST CONSULT Requested by Dr Morse Reason: management of comorbidities Mrs Boss is a 74 yo F with PMH of diastolic CHF, Atrial fibrillation, sick sinus syndrome, s/p pacer, seizure disorder, s/p right TKA, s/p hysterectomy, s/ p cholecystectomy, who failed conservative treatment of her left knee DJD, admitted for elective left TKA. She was evaluated in the PACU and was still sedated when I saw her. She denied any pain at the time of my evaluation. Family History: Findings - Mother had a pacemaker and father of lung CA Social History: Findings - No history of tobacco, alcohol, or drug use Past Medical History: Findings - diastolic CHF, Atrial fibrillation, sick sinus syndrome, s/p pacer, seizure disorder, s/p right TKA, s/p hysterectomy, s/p cholecystectomy Review of Systems - Measurements Intake and Output: Intake and Output Last 24 Hours 10/12/19 10/13/19 10/14/19 10/15/19 06:59 06:59 06:59 06:59 Intake Total 2600 Output Total 550 Balance 2049 Weight 251 lb 5.231 oz Intake: IV Fluids 2600 LR 2600 Output: Mar 550 - Review of Systems General Comments: A 10 point ROS was attempted, but patient is still sedated after surgery and unable to answer most of my questions. Objective Active Medications: Ambulatory Orders Apixaban* [Eliquis*] 5 mg PO BID 07/09/14 Metoprolol Succinate XL TAB* [Toprol XL TAB*] 25 mg PO BID 07/09/14 Amiodarone HCl [Amiodarone HCl-] 100 mg PO QAM 09/12/17 Acetaminophen [Tylenol] 2 tab PO ONCE PRN 09/07/18 Cory Inhaler 1 puff INH QAM 10/01/19 Sanjay Red 900 mg PO QAM 10/01/19 Multivitamin [Once Daily] 3 tab PO QAM 10/01/19 Hospital Orders Acetaminophen (Tylenol Tab*) 975 mg PO Q8HR [facility] Hydrocodone Bitart/Acetaminophen (Catherine 5-325 Tab*) 1 tab PO Q4H PRN PRN Reason: PAIN - MODERATE Hydrocodone Bitart/Acetaminophen ([place] 5-325 Tab*) 2 tab PO Q4H PRN PRN Reason: PAIN - SEVERE Apixaban (Eliquis*) 2.5 mg PO BID [facility] Stop: 10/15/19 21:01 Apixaban (Eliquis*) 5 mg PO BID [facility] Bisacodyl (Dulcolax Supp*) 10 mg [place] DAILY PRN PRN Reason: CONSTIPATION Cyclobenzaprine HCl (Flexeril Tab*) 10 mg PO Q6H PRN PRN Reason: SPASMS Dimenhydrinate (Dramamine Iv*) 12.5 mg IV PUSH ONCE PRN PRN Reason: NAUSEA/VOMITING Diphenhydramine HCl (Benadryl Iv*) 25 mg IV Q6H PRN PRN Reason: PRURITIS Diphenhydramine HCl (Benadryl Po*) 25 mg PO Q6H PRN PRN Reason: PRURITIS Docusate Sodium (Colace Cap*) 100 mg PO BID [facility] Famotidine (Pepcid Iv*) 20 mg IV ONCE ONE Stop: 10/14/19 06:01 Last Admin: 10/14/19 09:32 Dose: 20 mg Hydromorphone HCl (Dilaudid Inj1s*) 0.2 mg IV Q10M PRN PRN Reason: PAIN - SEVERE Lactated Ringer's (Lactated Ringers 1000 Ml Bag*) 1,000 mls @ 125 mls/hr IV PER RATE [facility] Last Admin: 10/14/19 09:32 Dose: 125 mls/hr Cefazolin Sodium 1 gm/ Sodium (Chloride) 50 mls @ 200 mls/hr IVPB Q8H [facility] Stop: 10/15/19 08:14 Lactated Ringer's (Lactated Ringers 1000 Ml Bag*) 1,000 mls @ 100 mls/hr IV PER RATE [facility] Last Admin: 10/14/19 17:26 Dose: 100 mls/hr Lactulose (Lactulose*) 30 ml PO BID PRN PRN Reason: CONSTIPATION Levalbuterol HCl (Xopenex 0.63mg/3ml Neb*) 0.63 mg INH ONCE PRN PRN Reason: SOB/WHEEZING Lidocaine/Sodium Bicarbonate (Buffered Lidocaine 1% Syrin*) 0.2 ml INTRADERM ONCE ONE Stop: 10/13/19 10:36 Last Admin: 10/14/19 09:32 Dose: 0.2 ml Magnesium Hydroxide (Milk Of Magnesia Liq*) 30 ml PO BID [facility] Magnesium Hydroxide (Milk Of Magnesia Liq*) 30 ml PO Q6H PRN PRN Reason: CONSTIPATION Metoprolol Succinate (Toprol Xl Tab*) 25 mg PO BID [facility] Multivitamins (Theragran Tab*) 1 tab PO DAILY [facility] Naloxone HCl (Narcan*) 0.08 mg IV Q2M PRN PRN Reason: severe induced resp depression Non-Formulary Medication (Amiodarone Hcl [Amiodarone Hcl-]) 100 mg PO QAM [facility] Non-Formulary Medication (Cory Inhaler) 1 puff INH QAM [facility] Non-Formulary Medication (Sanjay Red) 900 mg PO QAM [facility] Non-Formulary Medication (Multivitamin [Once Daily]) 3 tab PO QAM [facility] Ondansetron HCl (Zofran Inj*) 4 mg IV Q6H PRN PRN Reason: NAUSEA Ondansetron HCl (Zofran Odt Tab*) 4 mg PO Q6H PRN PRN Reason: NAUSEA Vital Signs - 8 hr 10/14/19 10/14/19 10/14/19 15:35 15:39 15:40 Temperature 98.1 F Pulse Rate 64 61 60 Respiratory 18 20 14 Rate Blood Pressure 112/66 114/60 (mmHg) O2 Sat by Pulse 97 96 95 Oximetry 10/14/19 10/14/19 10/14/19 15:45 15:50 16:00 Temperature Pulse Rate 60 60 60 Respiratory 14 17 14 Rate Blood Pressure 120/65 127/65 118/67 (mmHg) O2 Sat by Pulse 98 98 98 Oximetry 10/14/19 10/14/19 10/14/19 16:05 16:10 16:15 Temperature Pulse Rate 60 60 60 Respiratory 16 15 15 Rate Blood Pressure 125/59 114/56 105/56 (mmHg) O2 Sat by Pulse 98 97 97 Oximetry 10/14/19 10/14/19 10/14/19 16:20 16:32 16:35 Temperature Pulse Rate 60 60 Respiratory 16 18 16 Rate Blood Pressure 119/61 121/66 (mmHg) O2 Sat by Pulse 97 94 Oximetry 10/14/19 10/14/19 16:40 16:45 Temperature Pulse Rate 60 Respiratory 15 15 Rate Blood Pressure 124/67 (mmHg) O2 Sat by Pulse 96 Oximetry Oxygen Devices in Use Now: Nasal Cannula Appearance: Elderly lady lying in bed in NAD Eyes: No Scleral Icterus Ears/Nose/Mouth/Throat: Mucous Membranes Moist Neck: Trachea Midline Respiratory: Symmetrical Chest Expansion and Respiratory Effort, Clear to Auscultation Cardiovascular: RRR - Normal S1 and S2 Abdominal: NL Sounds; No Tenderness; No Distention Extremities: - - cryo unit to left knee Neurological: - - Sedated, arousable to voice, but goes right back to sleep Result Diagrams: 10/14/19 09:27 Assessment/Plan - Billing Assessment: Mrs Boss is a 74 yo F with PMH of bronchitis, diastolic CHF, Atrial fibrillation, sick sinus syndrome, s/p pacer, seizure disorder, s/p right TKA, s /p hysterectomy, s/p cholecystectomy, admitted for elective left TKA. Plan By Medical Problem: 1. Left TKA: - Management as per Ortho. 2. Atrial fibrillation: - As per Dr Bentley's note, patient has had very few episodes of Afib on pacer interrogation. - She is paced in the PACU. - Continue Amiodarone, Metoprolol, and Apixaban. 3. Bronchitis: - Continue Albuterol as needed. 4. DVT prophylaxis: - Apixaban. 5. Code status: - Full code. Hospitalist service will continue to follow.
[2019-10-14] MEDS ORDERED: Albuterol HFA INHALER* 8 gm MDI INH PRN (18:12)
[2019-10-14] MEDS: HYDROcodone/ACETAMIN 5-325 MG* 1 TAB PO PRN (18:16)
[2019-10-14] MEDS ORDERED: NS 0.9% 500 ML* 500 ML IV ONE ×2 (20:08→21:36)
[2019-10-14 21:16] LABS: ABS Lymphocytes 0.6 10^3/ul (1.0-4.8); ABS Monocytes 0.2 10^3/ul (0-0.8); ABS Neutrophils 6.6 10^3/ul (1.5-7.7); Eosinophil % 0.1 %; Hematocrit 35 % (35-47); Hemoglobin 11.6 g/dL (12.0-16.0); Lymphocyte % 7.7 %; Mean Corpuscular HGB Conc 34 g/dL (31-36); Mean Corpuscular Hemoglobin 32 pg (27-31); Mean Corpuscular Volume 95 fL (80-97); Mean Platelet Volume 9.5 fL (7.4-10.4); Platelet Count 124 10^3/uL (150-450); Red Blood Count 3.65 10^6 /uL (3.70-4.87); Red Cell Distribution Width 15 % (10-15); White Blood Count 7.4 10^3/uL (3.5-10.8)
[2019-10-14 21:18] LABS: Calcium 7.8 mg/dL (8.6-10.3)
[2019-10-14 21:24] LABS: BUN/Creatinine Ratio 18.2 (8-20); EGFR Non-African American 62.8 (>60)
[2019-10-14 21:28] LABS: Potassium 4.5 mmol/L (3.5-5.0)
[2019-10-14] MEDS: Metoprolol Succinate XL TAB* 25 MG PO SCH (21:40)
[2019-10-14] MEDS: Magnesium Hydroxide LIQ* 30 ML UDC PO SCH (21:43)
[2019-10-14] MEDS: Docusate CAP* 100 MG PO SCH (21:43)
[2019-10-14] MEDS: Acetaminophen TAB* 325 MG PO SCH (21:47)
[2019-10-14] MEDS: ceFAZolin 1 GM ADVAN(*) 1 GM in NS 0.9% 50 ML* 50 ML IVPB SCH (22:21)
[2019-10-15] MEDS ORDERED: NS 0.9% 1000 ML** 1,000 ML IV ONE (02:37)
[2019-10-15] MEDS: Lactated Ringers 1000 ML Bag* 1,000 ML IV SCH ×2 (04:13→11:00)
[2019-10-15] MEDS: ceFAZolin 1 GM ADVAN(*) 1 GM in NS 0.9% 50 ML* 50 ML IVPB SCH ×2 (04:13→12:45)
--- NOTE | 2019-10-15 05:53 | OP ---
CC: Dr. Cao; Dr. Hutchinson * DATE OF OPERATION: 10/14/19 - ROOM #348 DATE OF : 45 SURGICAL CARE: Left knee. SURGEON: Masood Morse MD. ASSISTANTS: JR Yousif; Joseph Ruiz, Student. ANESTHESIA: Left femoral canal block and spinal anesthetic was attempted, but not successful and a general anesthetic. PRE-OP DIAGNOSIS: Severe arthritis of the left knee with varus malalignment. POST-OP DIAGNOSIS: Severe arthritis of the left knee with varus malalignment. OPERATIVE PROCEDURE: Left total knee replacement. COMPONENTS UTILIZED: The Sharon Persona knee, all component cemented; size 8 standard femur, size 35 patella, size E tibia with a 10 articular surface. COMPLICATIONS: There were no complications. DRAINS: There were no drains. TOURNIQUET: Tourniquet control was utilized on the left thigh and cleanup and cementing phase of the case. BLOOD LOSS: 225 mL. REPLACEMENT: Crystalloid fluids. OPERATIVE INDICATION: Severe knee arthritis, varus malalignment and the arthritis has been no longer responsive to nonoperative care. DESCRIPTION OF PROCEDURE: The patient was brought to the operating room and placed on the operating table in a supine position, then a seated position while the spinal anesthetic was attempted and then returned to the supine position and general anesthetic was administered. Mar catheter was inserted. The left proximal thigh was wrapped with a tourniquet and the left leg was prepped after a preliminary chlorhexidine prep. The left leg was prepped and the tourniquet to the tips of the toes and then draped free and carefully sealed off in preparation for the left total knee replacement. At this point, we did our universal protocol time- out confirming Chanelle Boss and the plan for a left total knee replacement. We all agreed and we proceeded. The skin incision went from 2 fingerbreadths proximal to the superior pole of the patella , to the medial aspect of the tibial tubercle. Skin and subcu divided down to the deep fascia. Careful hemostasis was checked and achieved throughout this case utilizing electrocautery. At the start of the case, the patient's flexion was just 85 possibly 90 degrees and we could not put her foot on to the foot piece. The knee was entered medial parapatellar, the patient had clear straw colored synovial fluid, quite abundant. There was complete eburnation of bone medial femoral condyle, medial tibial plateau. The patient had a posterior bony body that was attached to the intercondylar notch and then went further posterior on to back of the knee and this was removed in the course of the case. It was the size of 2 large peanuts. The quad tendon was divided proximal to the superior pole of the patella, staying as close to vastus medialis and the tendon as possible. The patella was made so that it could be subluxated laterally and flipped. The anteromedial soft tissues on the tibia were elevated subperiosteally going around to the deep MCL and then to the posterior medial corner of the knee. Large osteophyte on the medial tibia was excised. The ACL was divided. The lateral meniscus was carefully excised. Intercondylar notch was cleaned of osteophytes and the ACL and PCL were uplifted from their femoral origins and the tibia was gradually so it could be subluxated forward from under the femur. The distal anterior femur was exposed subperiosteally for referencing and measuring after removing large osteophytes from the superior trochlea. The proximal tibial cut was made. Our goal here was to have a tibial surface that would be perpendicular of the long axis of the tibia, have a slight posterior slope, removing just a millimeter to medially and a centimeter to 12 mm laterally. After this cut was complete, then the femoral intramedullary drill was utilized, the femoral intramedullary canal was suctioned to discourage embolization. The distal femoral cut was then completed on 1 and 6 degrees of valgus and an extension gap was very satisfactory with a 10. The femur was measured for a size 8. The anterior, posterior, and chamfering cuts were completed. We then finished removal of the posterior horn medial meniscus, carefully preserving the MCL. This was the point where we removed the posterior large loose body after detaching it from the intercondylar notch posteromedially. The PCL had been carefully excised previously and the lateral meniscus was removed. At this point, we had nice ligamentous balance at 90 degrees of flexion with a 10 mm block. The femur was completed with the intercondylar cutout. The femoral canal was cleaned x6 with saline, suctioned empty and the bone plug was inserted. The tibia was then completed for a size E and the knee was articulated and extended with a size E tibia, 10 articular surface, size 8 femur with full knee extension, stable ligaments in extension and stable ligaments in 90 degrees of flexion. The patella was cut flat, it was measured for a 35. Three drill holes were made and these were undercut, a lateral release was not necessary. The knee was then cleaned in extension with pulse saline several liters and all surfaces were dried. Hemostasis was once again checked posteriorly and laterally. The knee was then cleaned in flexion with retractors in place. All bony surfaces were then cleaned with lap sponge. The cement was mixed and the components were cemented into position, the patella, followed by tibia, followed by femur. Each component was impacted. Excess cement was removed and the knee was articulated and extended during the final hardening. After final hardening, excess cement was once again removed. We irrigated and we checked posteriorly for bleeding points. We irrigated during the closure with saline several times. The quad mechanism closed with interrupted #1 Vicryl in figure- of-eight fashion, the same on the medial retinaculum. More distally we used 0 Vicryl, the deep bursa we used 0 Vicryl and then the superficial subcu we used 3 -0 Vicryl inverted. When we let the tourniquet down, the posterior medial pericapsular tissues were infiltrated with 20 mL of Marcaine with epinephrine and another 10 mL in the medial knee proximal and distal. The skin was closed with stefano. The skin was washed and dried. The knee was flexed several times during closure and the knee had full extension and flexion was past 90 degrees, I would estimate to about 105 or 110 degrees during the closure. The dressing after washing and drying with Betadine-soaked release, sterile gauze, clean 6-inch Webril, cryotherapy cuff, ABD pads, and then a 6-inch Cabrera bandage loosely applied. The dorsalis pulses 2+ at the end of the case and the patient was returned to the recovery room in stable and satisfactory condition, having tolerated the procedure very well. [id number]/CPS #: [id number] LD
[2019-10-15] MEDS: Acetaminophen TAB* 325 MG PO SCH ×4 (06:26→22:50)
--- NOTE | 2019-10-15 06:50 | PN ---
Progress Note - Progress Note Date of Service: 10/15/19 Note: POD#1 Her BP was low overnight and she got 2 liters of fluid. Her H/H this AM may be low. Her dressing has some serous drainage posteriorly. The left DP pulse is 2 plus and moving ankle up, down, in, and out nicely. Awake, alert, breathing easily. Plans: Check H/H and Eliquis, her dose today as high as we dare given blood losses and post op bleeding.
[2019-10-15 07:17] LABS: Hematocrit 32 % (35-47); Mean Platelet Volume 9.4 fL (7.4-10.4); Platelet Count 121 10^3/uL (150-450)
[2019-10-15 07:34] LABS: BUN/Creatinine Ratio 17.7 (8-20); Calcium 8.2 mg/dL (8.6-10.3); EGFR African American 86.1 (>60); EGFR Non-African American 71.1 (>60); Potassium 4.5 mmol/L (3.5-5.0)
[2019-10-15] MEDS: Vitamin THERAPEUTIC TAB PO SCH (08:50)
[2019-10-15] MEDS: Amiodarone TAB* 200 MG PO SCH (08:51)
[2019-10-15] MEDS: Apixaban* 2.5 MG TAB PO SCH (08:51)
[2019-10-15] MEDS: Docusate CAP* 100 MG PO SCH (08:52)
[2019-10-15] MEDS: MEGA RED PO SCH (08:53)
[2019-10-15] MEDS: Metoprolol Succinate XL TAB* 25 MG PO SCH (08:53)
[2019-10-15] MEDS: Magnesium Hydroxide LIQ* 30 ML UDC PO SCH (08:53)
[2019-10-15] MEDS ORDERED: MULTIVITAMIN PO SCH (09:00)
[2019-10-15] MEDS ORDERED: [UNRECOGNIZED DRUG - OTHER] INH SCH (09:00)
[2019-10-15] MEDS ORDERED: NS 0.9% IV ONE (09:14)
[2019-10-15] MEDS ORDERED: NS 0.9% 500 ML* 500 ML IV ONE (09:14)
--- NOTE | 2019-10-15 12:26 | PN ---
Subjective Date of Service: 10/15/19 Interval History: HOSPITALIST PROGRESS NOTE Patient seen and examined at bedside. Care reviewed and d/w Kirsten Hickey RN. She c/o feeling cold at this time. [place] a little dizzy when walking to the bathroom. Family History: Unchanged from Admission Social History: Unchanged from Admission Past Medical History: Unchanged from Admission Objective Active Medications: Acetaminophen (Tylenol Tab*) 975 mg PO Q8HR [facility] Last Admin: 10/15/19 06:26 Dose: 975 mg Hydrocodone Bitart/Acetaminophen ([place] 5-325 Tab*) 1 tab PO Q4H PRN PRN Reason: PAIN - MODERATE Hydrocodone Bitart/Acetaminophen ([place] 5-325 Tab*) 2 tab PO Q4H PRN PRN Reason: PAIN - SEVERE Last Admin: 10/14/19 18:16 Dose: 2 tab Albuterol (Ventolin Hfa Inhaler*) 2 puff INH Q4H PRN PRN Reason: SOB/WHEEZING Amiodarone HCl (Cordarone Tab*) 100 mg PO QAM [facility] Last Admin: 10/15/19 08:51 Dose: 100 mg Apixaban (Eliquis*) 2.5 mg PO BID [facility] Stop: 10/15/19 21:01 Last Admin: 10/15/19 08:51 Dose: 2.5 mg Apixaban (Eliquis*) 5 mg PO BID [facility] Bisacodyl (Dulcolax Supp*) 10 mg [place] DAILY PRN PRN Reason: CONSTIPATION Cyclobenzaprine HCl (Flexeril Tab*) 10 mg PO Q6H PRN PRN Reason: SPASMS Diphenhydramine HCl (Benadryl Iv*) 25 mg IV Q6H PRN PRN Reason: PRURITIS Diphenhydramine HCl (Benadryl Po*) 25 mg PO Q6H PRN PRN Reason: PRURITIS Docusate Sodium (Colace Cap*) 100 mg PO BID [facility] Last Admin: 10/15/19 08:52 Dose: Not Given Lactulose (Lactulose*) 30 ml PO BID PRN PRN Reason: CONSTIPATION Magnesium Hydroxide (Milk Of Magnesia Liq*) 30 ml PO BID [facility] Last Admin: 10/15/19 08:53 Dose: Not Given Magnesium Hydroxide (Milk Of Magnesia Liq*) 30 ml PO Q6H PRN PRN Reason: CONSTIPATION Metoprolol Succinate (Toprol Xl Tab*) 25 mg PO BID [facility] Last Admin: 10/15/19 08:53 Dose: Not Given Multivitamins (Theragran Tab*) 1 tab PO DAILY [facility] Last Admin: 10/15/19 08:50 Dose: 1 tab Non-Formulary Medication (Sanjay Red) 900 mg PO QAM [facility] Last Admin: 10/15/19 08:53 Dose: Not Given Ondansetron HCl (Zofran Inj*) 4 mg IV Q6H PRN PRN Reason: NAUSEA Ondansetron HCl (Zofran Odt Tab*) 4 mg PO Q6H PRN PRN Reason: NAUSEA Vital Signs - 8 hr 10/15/19 10/15/19 10/15/19 06:49 08:30 08:35 Temperature 98.6 F Pulse Rate 65 Respiratory 16 16 Rate Blood Pressure 133/89 83/50 (mmHg) O2 Sat by Pulse 94 Oximetry 10/15/19 10/15/19 10/15/19 08:49 10:18 10:31 Temperature Pulse Rate Respiratory Rate Blood Pressure 82/58 86/44 100/48 (mmHg) O2 Sat by Pulse Oximetry 10/15/19 11:41 Temperature 97.5 F Pulse Rate 70 Respiratory 16 Rate Blood Pressure 95/45 (mmHg) O2 Sat by Pulse 97 Oximetry Oxygen Devices in Use Now: None Appearance: Pleasant elderly lady lying in recliner in NAD with multiple blankets on Eyes: No Scleral Icterus Ears/Nose/Mouth/Throat: Mucous Membranes Moist Neck: Trachea Midline Respiratory: Symmetrical Chest Expansion and Respiratory Effort, Clear to Auscultation Cardiovascular: RRR - Normal S1 and S2 Extremities: - - Cryounit to left knee, good capillary refill Neurological: Alert and Oriented x 3, NL Muscle Strength and Tone Result Diagrams: 10/15/19 07:02 10/15/19 07:03 Assess/Plan/Problems-Billing Assessment: Mrs Boss is a 74 yo F with PMH of bronchitis, diastolic CHF, Atrial fibrillation, sick sinus syndrome, s/p pacer, seizure disorder, s/p right TKA, s /p hysterectomy, s/p cholecystectomy, admitted for elective left TKA. - Patient Problems (1) Hypotension Comment: - Likely secondary to anesthesia, surgical blood loss, pain meds. - Patient's BP was on the low side overnight and she has received multiple fluid bolus with improvement. - Continue metoprolol with holding parameters and monitor. (2) Total knee replacement status Comment: - Management as per Ortho. (3) Atrial fibrillation Comment: - As per Dr Bentley's note, patient has had very few episodes of Afib on pacer interrogation. - Her rhythm is paced. - Continue Amiodarone and Apixaban. - Continue Metoprolol with holding parameters. 3. Bronchitis: - Continue Albuterol as needed. 4. DVT prophylaxis: - Apixaban. 5. Code status: - Full code. Hospitalist service will continue to follow. (4) Chronic bronchitis Comment: - Continue Albuterol as needed. (5) DVT prophylaxis Comment: - Continue Apixaban. (6) Full code status Status and Disposition: Hospitalist service will continue to follow.
--- NOTE | 2019-10-15 13:16 | PN ---
Progress Note - Progress Note Date of Service: 10/15/19 SOAP: Subjective: []Pt seen and examined oob in chair. She has moderate knee pain, BP soft so holding narcotics. Can plan to resume when BP can tolerate. Denies any CP, SOB, dizziness, nausea. Objective: []Gen: NAD LLE: Left knee dressing CDI, thigh soft, DF/PF intact, DP2+, sensation intact to light touch distally Calves supple and nontender without erythema, edema or palpable cords Assessment: []POD 1 sp LTK Plan: []WBAT PT eliquis 2.5 mg BID today, resume home dose of 5 mg BID tomorrow Medicine comanaging. Soft BPs being managed with fluids for now Vital Signs Temp 97.5 F 10/15/19 11:41 Pulse 70 10/15/19 11:41 Resp 16 10/15/19 11:41 BP 95/45 10/15/19 11:41 Pulse Ox 97 10/15/19 11:41 Intake & Output 10/14/19 10/15/19 10/15/19 18:59 06:59 18:59 Intake Total 2600 2793 1087 Output Total 550 1000 200 Balance 2050 1793 887 Weight 251 lb 5.231 oz Intake: IV Fluids 2600 1723 822 LR 2600 723 322 NS (0.9%) 1000 500 IVPB 110 55 ABX - CEFAZOLIN 110 55 Oral 960 210 Output: Urine 200 Mar 550 1000 Laboratory Last Values WBC 7.4 10^3/uL (3.5-10.8) 10/14/19 21:01 RBC 3.65 10^6 /uL (3.70-4.87) L 10/14/19 21:01 Hgb 11.0 g/dL (12.0-16.0) L 10/15/19 07:02 Hct 32 % (35-47) L 10/15/19 07:02 MCV 95 fL (80-97) 10/14/19 21:01 MCH 32 pg (27-31) H 10/14/19 21:01 MCHC 34 g/dL (31-36) 10/14/19 21:01 RDW 15 % (10-15) 10/14/19 21:01 Plt Count 121 10^3/uL (150-450) L 10/15/19 07:02 MPV 9.4 fL (7.4-10.4) 10/15/19 07:02 Neut % (Auto) 89.3 % 10/14/19 21:01 Lymph % (Auto) 7.7 % 10/14/19 21:01 [place] % (Auto) 2.8 % 10/14/19 21:01 Eos % (Auto) 0.1 % 10/14/19 21:01 Baso % (Auto) 0.1 % 10/14/19 21:01 Absolute Neuts (auto) 6.6 10^3/ul (1.5-7.7) 10/14/19 21:01 Absolute Lymphs (auto) 0.6 10^3/ul (1.0-4.8) L 10/14/19 21:01 Absolute Monos (auto) 0.2 10^3/ul (0-0.8) 10/14/19 21:01 Absolute Eos (auto) 0.0 10^3/ul (0-0.6) 10/14/19 21:01 Absolute Basos (auto) 0.0 10^3/ul (0-0.2) 10/14/19 21:01 Absolute Nucleated RBC 0.0 10^3/ul 10/14/19 21:01 Nucleated RBC % 0.0 10/14/19 21:01 INR (Anticoag Therapy) 1.07 (0.82-1.09) 10/14/19 09:27 Sodium 138 mmol/L (135-145) 10/15/19 07:03 Potassium 4.5 mmol/L (3.5-5.0) 10/15/19 07:03 Chloride 107 mmol/L (101-111) 10/15/19 07:03 Carbon Dioxide 28 mmol/L (22-32) 10/15/19 07:03 Anion Gap 3 mmol/L (2-11) 10/15/19 07:03 BUN 14 mg/dL (6-24) 10/15/19 07:03 Creatinine 0.79 mg/dL (0.51-0.95) 10/15/19 07:03 Est GFR ( Amer) 86.1 (>60) 10/15/19 07:03 Est GFR (Non-Af Amer) 71.1 (>60) 10/15/19 07:03 BUN/Creatinine Ratio 17.7 (8-20) 10/15/19 07:03 Glucose 117 mg/dL (70-100) H 10/15/19 07:03 Calcium 8.2 mg/dL (8.6-10.3) L 10/15/19 07:03
[2019-10-15] MEDS ORDERED: Calcium Carbonate CHEW TAB* 500 MG (TUMS) PO PRN (13:44)
[2019-10-15 23:56] LABS: Hematocrit 29 % (35-47); Hemoglobin 9.8 g/dL (12.0-16.0)
[2019-10-16] MEDS: Magnesium Hydroxide LIQ* 30 ML UDC PO SCH ×2 (00:51→09:32)
[2019-10-16] MEDS: Apixaban* 2.5 MG TAB PO SCH (00:51)
[2019-10-16] MEDS: Docusate CAP* 100 MG PO SCH ×2 (00:51→09:30)
[2019-10-16] MEDS: Metoprolol Succinate XL TAB* 25 MG PO SCH ×2 (00:53→09:33)
[2019-10-16] MEDS: HYDROcodone/ACETAMIN 5-325 MG* 1 TAB PO PRN ×2 (06:03→10:31)
[2019-10-16] MEDS: Acetaminophen TAB* 325 MG PO SCH (06:08)
[2019-10-16 06:27] LABS: Hematocrit 28 % (35-47); Hemoglobin 9.7 g/dL (12.0-16.0); Mean Platelet Volume 9.1 fL (7.4-10.4); Platelet Count 105 10^3/uL (150-450)
[2019-10-16] MEDS ORDERED: Apixaban* 5 MG TAB PO SCH (09:00)
--- NOTE | 2019-10-16 09:05 | PN ---
Progress Note - Progress Note Date of Service: 10/16/19 Note: POD#2 Temp 99.8, Hct 28%. Starting Eliquis 5 mg BID today. Left knee dressing changed and the surgery has no drainage and cleaned and redressed. Left foot DP pulse is 2 plus. IMP: Stable. Acute blood loss anemia. Continue rehab and home soon.
[2019-10-16] MEDS: Amiodarone TAB* 200 MG PO SCH (09:29)
[2019-10-16] MEDS: Vitamin THERAPEUTIC TAB PO SCH (09:30)
[2019-10-16] MEDS: MEGA RED PO SCH (09:33)
--- NOTE | 2019-10-16 11:37 | DS ---
Orthopedic Discharge Summary - Discharge Summary Date of Admission:10/14/19 Date of Discharge: 10/16/19 Date of Surgery: 10/14/19 Attending Orthopedic Provider: Dr Morse Pre-operative Diagnosis: Left knee osteoarthritis Operative Procedure: left total knee replacement Disposition of Patient:home Home care vs Outpatient services: VNS and home PT Condition of Patient: stable Pain medication RX at discharge: hydrocodone./acetaminophen 5/325 mg take 1-2 every 4hrs as needed mdd 6. Patient tolerated pain control with primarily tylenol. DVT prophylaxis RX at discharge: eliquis 5 mg po bid ( no change from pre-op) History: JEREMY ESTRADA is a 74 year old F with years of increasingly severe left knee pain. Patient has failed conservative management and has elected to undergo a left total knee replacement Hospital Course: JEREMY was admitted to [facility] on 10/14/19. Patient underwent a left total knee replacement without complication followed by a brief recovery in PACU and transfer to the Short Stay Surgical Unit in stable condition. Our hospitalist service, physical therapy also participated in this patients care. Post-op day 1: patient was alert and in no acute distress. Dressing was clean, dry and intact. Operative extremity dorsiflexion and plantarflexion intact, sensation intact to light touch distally, DP2+. Post- op day two: dressing was changed, incision was clean, dry and intact. Patient was deemed to be medically and orthopedically stable for discharge. Physical therapy goals were met. Home Medications Medication Instructions Recorded Confirmed Type Apixaban* [Eliquis*] 5 mg PO BID 07/09/14 10/14/19 History Metoprolol Succinate XL TAB* 25 mg PO BID 07/09/14 10/14/19 History [Toprol XL TAB*] Amiodarone HCl [Amiodarone HCl-] 100 mg PO QAM 09/12/17 10/14/19 History Acetaminophen [Tylenol] 2 tab PO ONCE PRN 09/07/18 10/14/19 History Cory Inhaler 1 puff INH QAM 10/01/19 10/14/19 History Sanjay Red 900 mg PO QAM 10/01/19 10/01/19 History Multivitamin [Once Daily] 3 tab PO QAM 10/01/19 10/14/19 History Acetaminophen TAB* [Tylenol TAB*] 975 mg PO Q8HR tab 10/16/19 Rx Docusate CAP* [Colace Cap*] 100 mg PO BID PRN #60 cap 10/16/19 Rx HYDROcodone/ACETAMIN 5-325 MG* 1 tab PO Q4H PRN tab MDD 6 10/16/19 Rx [[place] 5-325 TAB*] HYDROcodone/ACETAMIN 5-325 MG* 2 tab PO Q4H PRN #30 tab MDD 6 10/16/19 Rx [[place] 5-325 TAB*] Discharge Instructions following Orthopedic Surgery: Activity: * Weight Bearing as tolerated * Continue physical therapy and occupational therapy exercises as shown * you have elected to have home physical therapy, continue therapy exercises at home. Wound care: * OK to shower on post-op day 3, no bathing, swimming, or submerging wound. * Use gentle soap, pat dry. Cover with gauze, ZOLTAN wrap or tape. * you elected to have a visiting home nurse, they will perform wound checks. home nurse to monitor BP and HR as well, call PCP with any concerns Call Orthopedic office for: * Increased drainage * Redness * Increased pain * Fever Go to ER with shortness of breath or chest pain. Diet: * Regular diet * Increase fluids and fiber to prevent constipation. * Continue to use stool softeners, call office if no bowel motion within 48 hours. Medications See Home Medication List in your packet for medications that you should take after discharge. DVT Prophylaxis: Eliquis Dosin mg, 1 tab every 12 hours without change from your normal prescription. Increases bleeding tendency Pain Control: hydrocodone/acetaminophen 5/325 mg 1 tab for moderate pain and 2 tabs for severe pain by mouth every 4 hours as needed. Maximum of 10 tabs per day. Hold for sedation, wean off as soon as pain allows Please note that hydrocodone/acetaminophen contains Tylenol (acetaminophen). Maximum daily dose of Tylenol is 4000 mg from all sources. Antibiotics are required prior to any dental work. FOLLOW UP: Follow up with [Lito] Within [4 weeks, call for appointment Please call our office with any questions or concerns ([phone]) [facility]
[2019-10-16 11:49] VITALS: BP 122/64
== END 2019-10-16 14:30 | disposition home health service (06) | DRG 470 ==
LOC: AA 08:37 → SSU 15:41
PROVIDERS: ADMIT Orthopaedic Surgery; ATTEND Orthopaedic Surgery
PROC: 0SRD0J9 Replacement of Left Knee Joint with Synthetic Substitute, Cemented, Open Approach (ICD-10-PCS; principal; 2019-10-14 10:30)
DX: M17.12 Unilateral primary osteoarthritis, left knee (principal); I50.32 Chronic diastolic (congestive) heart failure; D62 Acute posthemorrhagic anemia; Z68.41 Body mass index [BMI] 40.0-44.9, adult; Z96.651 Presence of right artificial knee joint; I48.0 Paroxysmal atrial fibrillation; I49.5 Sick sinus syndrome; G40.909 Epilepsy, unspecified, not intractable, without status epilepticus; E66.9 Obesity, unspecified; I11.0 Hypertensive heart disease with heart failure; K21.9 Gastro-esophageal reflux disease without esophagitis; L40.9 Psoriasis, unspecified; M21.162 Varus deformity, not elsewhere classified, left knee; J44.9 Chronic obstructive pulmonary disease, unspecified; I95.9 Hypotension, unspecified; Z88.5 Allergy status to narcotic agent; Z95.0 Presence of cardiac pacemaker; Z88.6 Allergy status to analgesic agent; Z79.01 Long term (current) use of anticoagulants; Z88.1 Allergy status to other antibiotic agents; Z87.891 Personal history of nicotine dependence; Z88.8 Allergy status to other drugs, medicaments and biological substances
CPT/HCPCS: 36415; 71045; 80048; 85014; 85018; 85025; 85049; 85610; 88305; 88311; A9270-GY; C1776; J0330; J0690; J1100; J1170; J1200; J1240; J1885; J2250; J2405; J2704; J2795; J3010